=== PATIENT | female | born 1935 | race Caucasian/White ===

== ENCOUNTER 2018-10-25 12:08 | Inpatient (IN) | payer MEDICARE ==
[~2018-10-25] VITALS: Ht 162.6 cm; Wt 72.6 kg
--- NOTE | 2018-10-25 12:20 | NUR ---
ED Nurse Note: PT brought in by ambulance from [facility] c/o unknown bruises, per EMS report, caregiver at the snf found pt on bed with unknown bruises and sent pt for eval. Noted contusion on left shoulder, sternal area and left forehead, noted old bruise on right arm, left arm, and right leg. no new bruise found on BLE. pt vss, resp even and unlabored on RA, will cont monitor. unable to assess pt's AA&o status, pt Tajik speaking only, HX dementia. Noted pt combative, biting, kicking. ERMD aware.
[2018-10-25] MEDS ORDERED: LORazepam Inj 2mg/ml 1ml IV ONE (12:30)
--- NOTE | 2018-10-25 12:33 | Emergency Room Report ---
History of Present Illness General Chief Complaint: General Complaint Source: Patient, Medical Record, EMS Present Illness HPI Patient present from nursing facility with reports of being found on the ground with bruises Patient herself is extremely agitated [place] however is not able to provide appropriate history Emergency contact is being called to obtain further information Unknown regarding the length of time on the ground unknown regarding the timing of the bruises Allergies: Coded Allergies: ZOLPIDEM (Verified Allergy, Unknown, 10/25/18) Patient History Limited by: medical condition Past Medical History: see triage record Pertinent Family History: unable to obtain Reviewed Nursing Documentation: PMH: Agreed; PSxH: Agreed Review of Systems All Other Systems: limited - Other than the ones mentioned in the history of present illness all others are reviewed however they do stay limited due to the patient's mental status Physical Exam Vital Signs Date Time Temp Pulse Resp B/P (MAP) Pulse Ox O2 Delivery O2 Flow Rate FiO2 10/25/18 12:01 97.2 80 16 110/64 99 Sp02 EP Interpretation: reviewed, normal General Appearance: mild distress - Agitated Head: normocephalic, atraumatic Eyes: bilateral eye PERRL, bilateral eye EOMI ENT: dry mucus membranes Neck: supple Respiratory: lungs clear, no retraction, no accessory muscle use Cardiovascular #1: regular rate, rhythm Gastrointestinal: non tender, soft Musculoskeletal: normal inspection Neurologic: responsive Skin: other - Patient has bruising to the left temporal region of her scalp, mid chest area, left shoulder, multiple previous healing bruises in the lower extremity Lymphatic: no adenopathy Medical Decision Making Diagnostic Impression: Primary Impression: Urinary tract infection Additional Impressions: Head injury Contusion ER Course Patient is a fairly complex patient with multiple differential to consideration including but not limited to cardiac cardiopulmonary and vascular emergencies I spoke to family who saw the patient at the nursing facility as well They feel the patient is essentially at baseline levels she does have underlying dementia And is at times somewhat aggressive CT imaging of the head does not show any acute disease Patient's kidney function is elevated Urine sample also shows infectious pathology and patient initiated on hydration given the multiple areas of bruising and concern for recurrent falls patient admitted for further evaluation Labs Test 10/25/18 12:35 10/25/18 14:09 10/26/18 05:30 White Blood Count 9.4 K/UL (4.8-10.8) 9.3 K/UL (4.8-10.8) Red Blood Count 4.45 M/UL (4.20-5.40) 4.04 M/UL (4.20-5.40) Hemoglobin 12.2 G/DL (12.0-16.0) 11.0 G/DL (12.0-16.0) Hematocrit 37.9 % (37.0-47.0) 34.2 % (37.0-47.0) Mean Corpuscular Volume 85 FL (80-99) 85 FL (80-99) Mean Corpuscular Hemoglobin 27.5 PG (27.0-31.0) 27.2 PG (27.0-31.0) Mean Corpuscular Hemoglobin Concent 32.3 G/DL (32.0-36.0) 32.2 G/DL (32.0-36.0) Red Cell Distribution Width 12.6 % (11.6-14.8) 12.4 % (11.6-14.8) Platelet Count 267 K/UL (150-450) 238 K/UL (150-450) Mean Platelet Volume 8.8 FL (6.5-10.1) 8.7 FL (6.5-10.1) Neutrophils (%) (Auto) 49.4 % (45.0-75.0) 61.5 % (45.0-75.0) Lymphocytes (%) (Auto) 41.2 % (20.0-45.0) 29.6 % (20.0-45.0) Monocytes (%) (Auto) 7.1 % (1.0-10.0) 6.4 % (1.0-10.0) Eosinophils (%) (Auto) 1.2 % (0.0-3.0) 1.8 % (0.0-3.0) Basophils (%) (Auto) 1.0 % (0.0-2.0) 0.7 % (0.0-2.0) Prothrombin Time 10.4 SEC (9.30-11.50) Prothromb Time International Ratio 1.0 (0.9-1.1) Activated Partial Thromboplast Time 27 SEC (23-33) Sodium Level 140 MMOL/L (136-145) Potassium Level 4.5 MMOL/L (3.5-5.1) Chloride Level 104 MMOL/L (98-107) Carbon Dioxide Level 28 MMOL/L (21-32) Anion Gap 8 mmol/L (5-15) Blood Urea Nitrogen 30 mg/dL (7-18) Creatinine 1.4 MG/DL (0.55-1.30) Estimat Glomerular Filtration Rate mL/min (>60) Glucose Level 134 MG/DL (74-106) Calcium Level 8.7 MG/DL (8.5-10.1) Total Bilirubin 0.3 MG/DL (0.2-1.0) Aspartate Amino Transf (AST/SGOT) 14 U/L (15-37) Alanine Aminotransferase (ALT/SGPT) 16 U/L (12-78) Alkaline Phosphatase 79 U/L (46-116) Total Creatine Kinase 20 U/L (26-308) Creatine Kinase MB 0.5 NG/ML (0.0-3.6) Creatine Kinase MB Relative Index 2.5 Troponin I 0.005 ng/mL (0.000-0.056) Total Protein 7.6 G/DL (6.4-8.2) Albumin 3.2 G/DL (3.4-5.0) Globulin 4.4 g/dL Albumin/Globulin Ratio 0.7 (1.0-2.7) Lipase 84 U/L (73-393) Urine Color Pale yellow Urine Appearance Clear Urine pH 6.5 (4.5-8.0) Urine Specific [place] 1.010 (1.005-1.035) Urine Protein 2+ (NEGATIVE) Urine Glucose (UA) Negative (NEGATIVE) Urine Ketones Negative (NEGATIVE) Urine Blood 5+ (NEGATIVE) Urine Nitrite Negative (NEGATIVE) Urine Bilirubin Negative (NEGATIVE) Urine Urobilinogen Normal MG/DL (0.0-1.0) Urine Leukocyte Esterase 3+ (NEGATIVE) Urine RBC 15-20 /HPF (0 - 2) Urine WBC 60-80 /HPF (0 - 2) Urine Squamous Epithelial Cells Few /LPF (NONE/OCC) Urine Bacteria Few /HPF (NONE) Rhythm Strip Diag. Results EP Interpretation: yes Rate: 80 Rhythm: NSR, no PVC's, no ectopy Chest X-Ray Diagnostic Results Chest X-Ray Diagnostic Results : Chest X-Ray Ordered: Yes # of Views/Limited/Complete: 1 View Indication: Chest Pain EP Interpretation: Yes Interpretation: no consolidation, no effusion, no pneumothorax Impression: No acute disease Electronically Signed by: Chris Vickers DO Other X-Ray Diagnostic Results Other X-Ray Diagnostic Results #1: X-Ray ordered: Left shoulde # of Views/Limited Vs Complete: 2 View Indication: Pain EP Interpretation: Yes Interpretation: no dislocation, no soft tissue swelling, no fractures Impression: No acute disease Electronically Signed by: Chris Vickers DO Other X-Ray Diagnostic Results #2: X-Ray ordered: Pelvic # of Views/Limited Vs Complete: 1 View Indication: Pain EP Interpretation: Yes Interpretation: no dislocation, no soft tissue swelling, no fractures Impression: No acute disease Electronically Signed by: Chris Vickers DO CT/MRI/US Diagnostic Results CT/MRI/US Diagnostic Results : Impression CT head no acute disease Last Vital Signs Date Time Temp Pulse Resp B/P (MAP) Pulse Ox O2 Delivery O2 Flow Rate FiO2 10/25/18 12:01 97.2 80 16 110/64 99 Status: improved Disposition: ADMITTED INPATIENT Condition: Serious Chris Vickers DO Oct 25, 2018 12:33
--- NOTE | 2018-10-25 12:40 | NUR ---
ED Nurse Note: blood specimen sent.
--- NOTE | 2018-10-25 12:43 | NUR ---
ED Nurse Note: report given to YE Moseley and endorsed care.
[2018-10-25 12:44] VITALS: BP 152/79
[2018-10-25 13:06] LABS: EOSINOPHILS % (AUTO) 1.2 % (0.0-3.0); HEMATOCRIT 37.9 % (37.0-47.0); HEMOGLOBIN 12.2 G/DL (12.0-16.0); LYMPHOCYTES % (AUTO) 41.2 % (20.0-45.0); MEAN CORPUSCULAR VOLUME 85 FL (80-99); MONOCYTES % (AUTO) 7.1 % (1.0-10.0); NEUTROPHILS % (AUTO) 49.4 % (45.0-75.0); PLATELET COUNT 267 K/UL (150-450); RED BLOOD COUNT 4.45 M/UL (4.20-5.40); RED CELL DISTRIBUTION WIDTH 12.6 % (11.6-14.8); WHITE BLOOD COUNT 9.4 K/UL (4.8-10.8)
[2018-10-25 13:07] LABS: ANION GAP 8 mmol/L (5-15); BLOOD UREA NITROGEN 30 mg/dL (7-18); CALCIUM 8.7 MG/DL (8.5-10.1); CARBON DIOXIDE 28 MMOL/L (21-32); CHLORIDE 104 MMOL/L (98-107); CREATININE 1.4 MG/DL (0.55-1.30); POTASSIUM 4.5 MMOL/L (3.5-5.1); SODIUM 140 MMOL/L (136-145)
[2018-10-25 13:22] LABS: ALANINE AMINOTRANSFERASE 16 U/L (12-78); ALBUMIN 3.2 G/DL (3.4-5.0); ALBUMIN/GLOBULIN RATIO 0.7 (1.0-2.7); ALKALINE PHOSPHATASE 79 U/L (46-116); ASPARTATE AMINO TRANSFERASE 14 U/L (15-37); BILIRUBIN,TOTAL 0.3 MG/DL (0.2-1.0); CKMB 0.5 NG/ML (0.0-3.6); CREATINE KINASE 20 U/L (26-308)
--- NOTE | 2018-10-25 13:25 | NUR ---
ED Nurse Note: Pt taken to CT and xray. Ativan given.
--- NOTE | 2018-10-25 14:10 | Diagnostic Imaging Report ---
EXAM: CT Head Without Intravenous Contrast CLINICAL HISTORY: PAIN TECHNIQUE: Axial computed tomography images of the head/brain without intravenous contrast. CTDI is 70.38 mGy and DLP is 1411 mGy-cm. One or more of the following dose reduction techniques were used: automated exposure control, adjustment of the mA and/or kV according to patient size, use of iterative reconstruction technique. COMPARISON: No relevant prior studies available. FINDINGS: Brain: Motion slightly limits assessment of the vertex. No clear intracranial hemorrhage or mass effect. No clear acute large vessel territorial infarct. Involutional and microvascular ischemic changes. Ventricles: Unremarkable. No ventriculomegaly. Bones/joints: Unremarkable. No acute fracture. Soft tissues: Unremarkable. Sinuses: Small mucous retention cyst in the left maxillary sinus.. Mastoid air cells: Unremarkable as visualized. No mastoid effusion. IMPRESSION: No definite acute intracranial process on exam that is slightly limited by motion.
--- NOTE | 2018-10-25 14:12 | Diagnostic Imaging Report ---
EXAM: XR Chest, 1 View CLINICAL HISTORY: CP TECHNIQUE: Frontal view of the chest. COMPARISON: No relevant prior studies available. FINDINGS: Lungs: Left base atelectasis. Cannot exclude infectious infiltrate. Pleural space: Unremarkable. No pneumothorax. Heart: Borderline cardiomegaly. Mediastinum: Aortic atherosclerosis. Bones/joints: Osteopenia. IMPRESSION: Left base atelectasis. Cannot exclude infectious infiltrate.
--- NOTE | 2018-10-25 14:14 | Diagnostic Imaging Report ---
EXAM: XR Left Shoulder Complete, 2 or More Views CLINICAL HISTORY: TRAUMA TECHNIQUE: Two or more views of the left shoulder. COMPARISON: No relevant prior studies available. FINDINGS: Bones/joints: Technically limited. Transscapular view. Osteopenia. No acute fracture. No dislocation. Soft tissues: Unremarkable. IMPRESSION: No clear fracture or dislocation on technically limited exam
--- NOTE | 2018-10-25 14:15 | Diagnostic Imaging Report ---
EXAM: XR Pelvis, 1 or 2 Views CLINICAL HISTORY: TRAUMA TECHNIQUE: Frontal view of the pelvis. COMPARISON: No relevant prior studies available. FINDINGS: Bones/joints: Osteopenia. No acute fracture. No dislocation. Soft tissues: Fecal retention. Calcific atherosclerosis. IMPRESSION: No fracture or dislocation
[2018-10-25 14:20] LABS: APPEARANCE,URINE CLEAR; BILIRUBIN, URINE NEGATIVE (NEGATIVE); COLOR,URINE PALE YELLOW; GLUCOSE, URINE (UA) NEGATIVE (NEGATIVE); KETONES,URINE NEGATIVE (NEGATIVE); LEUKOCYTE ESTERASE ,URINE 3+ (NEGATIVE); NITRITE,URINE NEGATIVE (NEGATIVE); PH,URINE 6.5 (4.5-8.0); PROTEIN,URINE 2+ (NEGATIVE); UROBILINOGEN,URINE NORMAL MG/DL (0.0-1.0)
[2018-10-25 14:30] VITALS: BP 145/80
[2018-10-25] MEDS ORDERED: cefTRIAXone 1 GM in NS 55 ML IVPB ONE (15:00)
[2018-10-25] MEDS ORDERED: ACETAMINOPHEN325 M1 ORAL (17:14)
[2018-10-25] MEDS ORDERED: ARTIFICIAL TEAR15 ML BOTH EYES (17:16)
[2018-10-25] MEDS ORDERED: ASPIR 8181 MG ORAL (17:17)
[2018-10-25] MEDS ORDERED: BASAGLAR SUBQ (17:20)
[2018-10-25] MEDS ORDERED: [UNRECOGNIZED DRUG - OTHER] SUBQ (17:20)
[2018-10-25] MEDS ORDERED: KLONOPIN0.5 MG ORAL (17:22)
[2018-10-25] MEDS ORDERED: CATAPRES0.1 MG ORAL (17:23)
[2018-10-25] MEDS ORDERED: VITAMIN B-12500 MCG ORAL (17:24)
[2018-10-25] MEDS ORDERED: FISH OIL 1,0001 EAC1 ORAL (17:26)
[2018-10-25] MEDS ORDERED: SYNTHROID25 MCG ORAL (17:27)
[2018-10-25] MEDS ORDERED: LOSARTAN POTASS25 MG ORAL (17:28)
[2018-10-25 17:30] VITALS: BP 154/79
[2018-10-25] MEDS ORDERED: LOTEMAX3.5 GM BOTH EYES (17:30)
[2018-10-25] MEDS ORDERED: NAMENDA5 MG ORAL (17:35)
[2018-10-25] MEDS ORDERED: MILK OF MA400 MG/51 ORAL (17:37)
[2018-10-25] MEDS ORDERED: NOVOLOG MI100 UNIT/3 SQ (17:40)
[2018-10-25] MEDS ORDERED: NOVOLOG100 UNITS1 SUBQ (17:40)
[2018-10-25] MEDS ORDERED: NOVOLOG100 UNIT/4 SQ (17:40)
[2018-10-25] MEDS ORDERED: PRO-STAT LIQUID30 ML ORAL (17:42)
[2018-10-25] MEDS ORDERED: SENNOSIDES8.6 MG ORAL (17:45)
[2018-10-25] MEDS ORDERED: ZOCOR40 MG ORAL (17:48)
[2018-10-25] MEDS ORDERED: TRADJENTA5 MG PO (17:49)
--- NOTE | 2018-10-25 17:56 | NUR ---
ED Nurse Note: telephone report given to YE Myrick
--- NOTE | 2018-10-25 18:07 | NUR ---
Craig ruvalcaba in ED - 10/25/18 at 1807 by NITZA ED Nurse
--- NOTE | 2018-10-25 18:15 | NUR ---
NURSE NOTES: Receive patient from ER ,patient awake ,respirations unlabored.no open wound noted,noted bruise on the left shoulder,left side of forehead,and generalize bruising on lower legs.bruising on the left arm and upper right arm.Patient alert to name.Bed alarm on. Dhara LOPEZ notified of patient admission.
--- NOTE | 2018-10-25 19:40 | NUR ---
NURSE NOTES: Receive patient awake ,respirations unlabored.no open wound noted,noted bruise on the left shoulder,left side of forehead,and generalized bruising on lower legs.bruising on the left arm and upper right arm.Patient alert to name.Bed alarm on. Will continue to monitor patient.
--- NOTE | 2018-10-25 19:40 | NUR ---
HAND-OFF: Report given to Aleja BELCHER.
[2018-10-25 20:00] VITALS: BP 142/84
[2018-10-25] MEDS ORDERED: Albuterol/Ipratropium 3ml neb HHN PRN (21:15)
[2018-10-25] MEDS ORDERED: clonazePAM 0.5mg tab ORAL PRN (21:15)
[2018-10-25] MEDS ORDERED: Morphine Sulfate 2mg/ml Inj(IV/IM USE ONLY) IVP PRN (21:15)
[2018-10-25] MEDS ORDERED: Miralax 17gm pkt ORAL PRN (21:15)
[2018-10-25] MEDS: Heparin 5000 units/ml inj SUBQ SCH (21:28)
[2018-10-25] MEDS ORDERED: Nitroglycerin Subl 0.4mg tab SL PRN (21:30)
[2018-10-25] MEDS ORDERED: Dextrose 50% 25ml Syringe IV PRN (21:30)
[2018-10-25] MEDS: Cefepime HCl 2 GM in D5W 110 ML IV SCH (22:11)
[2018-10-25] MEDS ORDERED: Vancomycin 1.25gm Premix IVPB ONE (23:00)
[2018-10-26] VITALS: BP 163/80
[2018-10-26] MEDS ORDERED: Vancomycin 1 GM in D5W 275 ML IV SCH (00:30)
[2018-10-26 04:00] VITALS: BP 125/94
[2018-10-26] MEDS: NovoLOG Insulin Flexpen SUBQ SCH ×4 (06:30→21:06)
[2018-10-26] MEDS: Levothyroxine 25mcg tab ORAL SCH (06:30)
[2018-10-26 07:12] LABS: BASOPHILS % (AUTO) 0.7 % (0.0-2.0); EOSINOPHILS % (AUTO) 1.8 % (0.0-3.0); HEMATOCRIT 34.2 % (37.0-47.0); LYMPHOCYTES % (AUTO) 29.6 % (20.0-45.0); MEAN CORPUSCULAR VOLUME 85 FL (80-99); MONOCYTES % (AUTO) 6.4 % (1.0-10.0); NEUTROPHILS % (AUTO) 61.5 % (45.0-75.0); PLATELET COUNT 238 K/UL (150-450); RED BLOOD COUNT 4.04 M/UL (4.20-5.40); RED CELL DISTRIBUTION WIDTH 12.4 % (11.6-14.8); WHITE BLOOD COUNT 9.3 K/UL (4.8-10.8)
--- NOTE | 2018-10-26 07:35 | NUR ---
NURSE NOTES: Received patient on bed, awake. Bilateral soft wrist restraints on. IV intact and patent. Bed in low and locked position, call light in reach. No signs of respiratory distress or pain. Room board updated, will continue to monitor.
--- NOTE | 2018-10-26 07:58 | NUR ---
HAND-OFF: Report given to YE Garay.
[2018-10-26 08:00] VITALS: BP 166/91
[2018-10-26 08:29] LABS: ALANINE AMINOTRANSFERASE 12 U/L (12-78); ALBUMIN/GLOBULIN RATIO 0.8 (1.0-2.7); ALKALINE PHOSPHATASE 73 U/L (46-116); ANION GAP 11 mmol/L (5-15); ASPARTATE AMINO TRANSFERASE 15 U/L (15-37); BILIRUBIN,TOTAL 0.3 MG/DL (0.2-1.0); BLOOD UREA NITROGEN 22 mg/dL (7-18); CALCIUM 8.5 MG/DL (8.5-10.1); CARBON DIOXIDE 24 MMOL/L (21-32); CHLORIDE 106 MMOL/L (98-107); CREATININE 1.2 MG/DL (0.55-1.30); SODIUM 140 MMOL/L (136-145)
[2018-10-26] MEDS ORDERED: Heparin 5000 units/ml inj SUBQ SCH (09:00)
[2018-10-26] MEDS: Losartan 25mg tab ORAL SCH (09:07)
[2018-10-26] MEDS: Heparin 5000 units/ml inj SUBQ SCH ×2 (09:08→21:05)
[2018-10-26] MEDS ORDERED: Tubing IV Secondary IV ONE (09:10)
--- NOTE | 2018-10-26 10:07 | NUR ---
RN CALL CENTERCHARGER TESTER 83 Y/O FEMALE BIBA FROM [facility] TO [facility] ER CC:GENERAL COMPLAINT SI:ENCEPHALOPATHY . MULTIPLE FALLS . UTI VS: BP 154/79, P 85, T 97.1, RR 20, SpO2 100 RBC 4.04, Hgb 11.0, Hct 34.2, BUN 30, CR 1.4, URINE BLOOD 5+ CXR IMPRESSION:Left base atelectasis. IS:ZOFRAN 4mg IVP NS 500ml IV LORAZEPAM 2mg IV CEFTRIAXONE 55ml IVPB VANCOMYCIN 275ml IVPB ADMITTED TO MED/SURG DCP: RETURN TO [facility]
[2018-10-26 12:00] VITALS: BP 121/81
[2018-10-26 16:00] VITALS: BP 151/95
--- NOTE | 2018-10-26 18:00 | History and Physical Report ---
DATE OF ADMISSION: 10/25/2018 CHIEF COMPLAINT: The patient is an 83-year-old British-speaking female, who presents with chief complaint of altered mental status. HISTORY OF PRESENT ILLNESS: The patient is a resident of [facility]. According to staff at [facility], the patient was found on the floor. It was unknown how long the patient was on the floor. The patient herself is unable to contribute much to the history and physical. She is British-speaking only. The patient was also quite agitated in the emergency room. The patient was admitted to [facility] for altered mental status. REVIEW OF SYSTEMS: Unable to assess secondary to the patient's mental status. PAST MEDICAL HISTORY: Significant for: 1. Diabetes type 2. 2. Hypothyroidism. 3. Alzheimer's dementia. 4. Gout. 5. Hypercholesterolemia. 6. Major depression. PAST SURGICAL HISTORY: Unknown. CURRENT MEDICATIONS: 1. Tylenol 650 mg p.o. q.4 h. p.r.n. 2. Aspirin 81 mg p.o. daily. 3. 10 units subcutaneously nightly. 4. Klonopin 0.5 mg p.o. twice daily. 5. Clonidine 0.1 mg p.o. twice daily. 6. Vitamin B12 1000 mcg p.o. daily. 7. Levoxyl 0.025 mg p.o. daily. 8. Losartan 25 mg p.o. daily. 9. Lotemax 0.5% applied one 0.25 inch to both eyes nightly. 10. Methenamine 5 mg one tablet p.o. twice daily. ALLERGIES: No known drug allergies. SOCIAL HISTORY: The patient is a . The patient is resident of [facility]. The patient denies tobacco or alcohol use. PHYSICAL EXAMINATION: VITAL SIGNS: Temperature 97.9 degrees, respirations 19, pulse 71, and blood pressure 125/94. GENERAL: The patient is well-developed and well-nourished white female, in no apparent distress. HEENT: Eyes, pupils equal and responsive to light and accommodation. Extraocular movements are intact. NECK: Supple without lymphadenopathy. CHEST: Lungs are clear to auscultation bilaterally without wheezes or rales. CARDIOVASCULAR: Regular rate. S1 and S2 are normal without murmurs, rubs, or gallops. ABDOMEN: Soft, nontender, and nondistended. Positive bowel sounds. No evidence of hepatosplenomegaly. Currently, no rebound or guarding noted. RECTAL: Refused. GENITAL: Refused. EXTREMITIES: Negative for clubbing, cyanosis, or edema. NEUROLOGIC: Cranial nerves II through XII are grossly intact without focal deficits. Motor strength is 5/5 bilaterally throughout. Deep tendon reflexes are 2+ plantar. LABORATORY STUDIES: WBC 9.4, hemoglobin 12.2, hematocrit 37.9, and platelets 267,000. Sodium 140, potassium 4.5, chloride 104, CO2 20, BUN 30, creatinine 1.4, glucose 134, and troponin 0.005. Urinalysis showed 2+ protein, 5+ blood, 3+ leukocyte esterase with 60 to 80 WBC and 15 to 20 RBC. ASSESSMENT: This is an 83-year-old white female with: 1. Near syncope. 2. Urinary tract infection. 3. Diabetes type 2. 4. Hypertension. 5. Hypothyroidism. 6. Alzheimer's dementia. 7. Gout. 8. Hypercholesterolemia. 9. Major depression. TREATMENT: 1. Near syncope. This may be secondary to urinary tract infection versus cerebrovascular accident versus acute myocardial infarction. The patient is admitted to the medical/surgical unit. 2. Urinary tract infection. Urine culture is pending. The patient has been started empirically on vancomycin and cefepime. Await urine culture ID and sensitivity. 3. Diabetes type 2. The patient has been placed on NovoLog sliding scale. 4. Hypertension. Continue losartan as above. 5. Hypothyroidism. Continue Levoxyl as above. 6. Alzheimer's dementia. Continue Namenda as above. 7. Gout. 8. Hypercholesterolemia. 9. Major depression. Abelardo Miranda M.D. DR: Liang JOB#: [id number] CC:
--- NOTE | 2018-10-26 19:17 | NUR ---
HAND-OFF: Report given to YE Hernández.
--- NOTE | 2018-10-26 19:37 | NUR ---
NURSE NOTES: Received patient in bed, awake. Bilateral soft wrist restraints on. IV intact and patent. Bed in low and locked position, bed alarm on, call light in reach. No signs of respiratory distress or pain. Room board updated, will continue to monitor.
[2018-10-26 20:00] VITALS: BP 153/80
[2018-10-26] MEDS: Cefepime HCl 2 GM in D5W 110 ML IV SCH (21:33)
[2018-10-26] MEDS ORDERED: Vancomycin 750mg/NS 275ml IVPB SCH ×2 (23:00)
[2018-10-27] VITALS: BP 103/65
[2018-10-27 04:00] VITALS: BP 153/83
[2018-10-27] MEDS: NovoLOG Insulin Flexpen SUBQ SCH ×4 (05:47→20:16)
[2018-10-27] MEDS: Levothyroxine 25mcg tab ORAL SCH (05:48)
[2018-10-27 07:15] LABS: ANION GAP 9 mmol/L (5-15); BLOOD UREA NITROGEN 20 mg/dL (7-18); CALCIUM 8.4 MG/DL (8.5-10.1); CARBON DIOXIDE 24 MMOL/L (21-32); CHLORIDE 109 MMOL/L (98-107); CREATININE 1.4 MG/DL (0.55-1.30); SODIUM 142 MMOL/L (136-145)
[2018-10-27 07:26] LABS: BASOPHILS % (AUTO) 0.6 % (0.0-2.0); HEMOGLOBIN 10.6 G/DL (12.0-16.0); LYMPHOCYTES % (AUTO) 38.8 % (20.0-45.0); MEAN CORPUSCULAR VOLUME 85 FL (80-99); MONOCYTES % (AUTO) 5.2 % (1.0-10.0); NEUTROPHILS % (AUTO) 53.3 % (45.0-75.0); PLATELET COUNT 228 K/UL (150-450); RED BLOOD COUNT 3.86 M/UL (4.20-5.40); RED CELL DISTRIBUTION WIDTH 12.6 % (11.6-14.8); WHITE BLOOD COUNT 7.1 K/UL (4.8-10.8)
[2018-10-27 08:00] VITALS: BP 153/88
--- NOTE | 2018-10-27 08:01 | NUR ---
NURSE NOTES: Patient received, resting in bed. Breathing unlabored on room air. Soft restraints on bilateral wrists. IV site patent and intact on right arm, fluids running. Bed locked in lowest position, bed alarm on. Call light placed within reach, will continue to monitor.
--- NOTE | 2018-10-27 08:07 | NUR ---
HAND-OFF: Report given to YE Menon.
[2018-10-27] MEDS: Losartan 25mg tab ORAL SCH (09:09)
[2018-10-27] MEDS: Heparin 5000 units/ml inj SUBQ SCH ×2 (09:18→20:17)
--- NOTE | 2018-10-27 10:19 | NUR ---
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 MULTIPLE FALLS . UTI VS: BP 153/88, P 74, T 97.2, RR 17, SpO2 95 RBC 3.86, Hgb 10.6, Hct 33.0, BUN 20, CR 1.4 IS:VANCOMYCIN 275ml IVPB CLONIDINE HCI 0.1mg COZAAR 25mg CEFEPIME HCI 110ml IV KLONOPIN 0.5mg HEPARIN SUBQ NS x 1L IV MED/SURG STATUS
[2018-10-27 12:00] VITALS: BP 143/77
--- NOTE | 2018-10-27 12:50 | Initial Psychiatric Evaluation ---
Psychiatry Consultation Psychiatry Consultation Chief Complaint: General Complaint History of Present Illness: 83-year-old Samoan-speaking female, with mmp who presents with chief complaint of altered mental status. the pt was found on the floor in the sniff. the pt is disoriented and confused. the pt is easily agitated and is unable to provide hx. the pt has waxing and waning of consciousness. the pt has memory impairment. Allergies: Coded Allergies: ZOLPIDEM (Verified Allergy, Unknown, 10/25/18) Medication History Scheduled Amino Acids/Protein Hydrolys (Pro-Stat Liquid), 30 ML ORAL DAILY, (Reported) Aspirin* (Aspir 81*), 81 MG ORAL DAILY, (Reported) Clonidine Hcl* (Catapres*), 0.1 MG ORAL Q12HR, (Reported) Cyanocobalamin (Vitamin B-12)* (Vitamin B-12*), 1,000 MCG ORAL DAILY, (Reported) Insulin Aspart (Novolog Flexpen), Unknown Dose SUBQ BEFORE MEALS AND HS, ( Reported) Levothyroxine Sodium* (Synthroid*), 25 MCG ORAL ACBREAKFAST, (Reported) Linagliptin (Tradjenta), 5 MG PO DAILY, (Reported) Losartan Potassium* (Losartan Potassium*), 25 MG ORAL DAILY, (Reported) Loteprednol Etabonate (Lotemax), 0.25 INCH BOTH EYES BEDTIME, (Reported) Memantine Hcl* (Namenda*), 5 MG ORAL TWICE A DAY, (Reported) Hansen-3 Fatty Acids/Fish Oil* (Fish Oil 1,000 Mg Softgel*), 2 CAP ORAL Q12HR, ( Reported) Sennosides* (Sennosides*), 17.2 MG ORAL BEDTIME, (Reported) Simvastatin (Zocor), 40 MG ORAL BEDTIME, (Reported) [Basaglar Pen 100u/mL], 10 UNITS SUBQ QHS, (Reported) Scheduled PRN Acetaminophen* (Acetaminophen 325MG Tablet*), 650 MG ORAL Q6H PRN for For Pain, (Reported) Acetaminophen* (Acetaminophen 325MG Tablet*), 650 MG ORAL Q6H PRN for Prn Headache/Temp > 101, (Reported) Clonazepam* (Klonopin*), 0.5 MG ORAL Q12HR PRN for Restlessness, (Reported) Magnesium Hydroxide* (Milk Of Magnesia*), 30 ML ORAL Q6HR PRN for Constipation, (Reported) Miscellaneous Medications Dextran 70/Hypromellose (Artificial Tears Eye Drops*), 1 DROP BOTH EYES, ( Reported) Patient History Limited by: medical condition History Provided By: Medical Record, PMD Objective Data Height (Feet): 5 Height (Inches): 4.00 Weight (Pounds): 160 Appearance: no abnormalities noted Behavior Mannerisms: good eye contact Affect: constricted Mood: anxious, agitated Thought Process: loose association Suicidal Ideation: not present Assessment/Plan Problem List: (1) Dementia with behavioral disturbance ICD Codes: F03.91 - Unspecified dementia with behavioral disturbance SNOMED: [id number] Treatment Plan: Depakote 250mg po bid dc klonopin ativan prn cont restraints. Cynthia López MD Oct 27, 2018 12:50
--- NOTE | 2018-10-27 15:12 | Consultation ---
History of Present Illness General Date patient seen: Oct 27, 2018 Chief Complaint: General Complaint Present Illness HPI 83 y/o F with hx of Dm2, hypothyroidism, HTN, HLD, Alzheimer's Dementia, Gout, HLD, MDD, SNF resident presents to ED on 10/25 after being found ont he ground with bruises Allergies: Coded Allergies: ZOLPIDEM (Verified Allergy, Unknown, 10/25/18) Medication History Scheduled Amino Acids/Protein Hydrolys (Pro-Stat Liquid), 30 ML ORAL DAILY, (Reported) Aspirin* (Aspir 81*), 81 MG ORAL DAILY, (Reported) Clonidine Hcl* (Catapres*), 0.1 MG ORAL Q12HR, (Reported) Cyanocobalamin (Vitamin B-12)* (Vitamin B-12*), 1,000 MCG ORAL DAILY, (Reported) Insulin Aspart (Novolog Flexpen), Unknown Dose SUBQ BEFORE MEALS AND HS, ( Reported) Levothyroxine Sodium* (Synthroid*), 25 MCG ORAL ACBREAKFAST, (Reported) Linagliptin (Tradjenta), 5 MG PO DAILY, (Reported) Losartan Potassium* (Losartan Potassium*), 25 MG ORAL DAILY, (Reported) Loteprednol Etabonate (Lotemax), 0.25 INCH BOTH EYES BEDTIME, (Reported) Memantine Hcl* (Namenda*), 5 MG ORAL TWICE A DAY, (Reported) [place]-3 Fatty Acids/Fish Oil* (Fish Oil 1,000 Mg Softgel*), 2 CAP ORAL Q12HR, ( Reported) Sennosides* (Sennosides*), 17.2 MG ORAL BEDTIME, (Reported) Simvastatin (Zocor), 40 MG ORAL BEDTIME, (Reported) [Basaglar Pen 100u/mL], 10 UNITS SUBQ QHS, (Reported) Scheduled PRN Acetaminophen* (Acetaminophen 325MG Tablet*), 650 MG ORAL Q6H PRN for For Pain, (Reported) Acetaminophen* (Acetaminophen 325MG Tablet*), 650 MG ORAL Q6H PRN for Prn Headache/Temp > 101, (Reported) Clonazepam* (Klonopin*), 0.5 MG ORAL Q12HR PRN for Restlessness, (Reported) Magnesium Hydroxide* (Milk Of Magnesia*), 30 ML ORAL Q6HR PRN for Constipation, (Reported) Miscellaneous Medications Dextran 70/Hypromellose (Artificial Tears Eye Drops*), 1 DROP BOTH EYES, ( Reported) Patient History Healthcare decision maker Resuscitation status Advanced Directive on File Patient History Narrative Pmhx: as above Shx: The patient is a . The patient is resident of [facility]. The patient denies tobacco or alcohol use. Fhx: non contributory Review of Systems All Other Systems: negative except mentioned in HPI Physical Exam Physical Exam Narrative GENERAL: The patient is well-developed and well-nourished white female, in no apparent distress. HEENT: Eyes, pupils equal and responsive to light and accommodation. Extraocular movements are intact. NECK: Supple without lymphadenopathy. CHEST: Lungs are clear to auscultation bilaterally without wheezes or rales. CARDIOVASCULAR: Regular rate. S1 and S2 are normal without murmurs, rubs, or gallops. ABDOMEN: Soft, nontender, and nondistended. Positive bowel sounds. No evidence of hepatosplenomegaly. Currently, no rebound or guarding noted. EXTREMITIES: Negative for clubbing, cyanosis, or edema. NEUROLOGIC: Cranial nerves II through XII are grossly intact without focal deficits. Motor strength is 5/5 bilaterally throughout. Deep tendon reflexes are 2+ plantar. Last 24 Hour Vital Signs Date Time Temp Pulse Resp B/P (MAP) Pulse Ox O2 Delivery O2 Flow Rate FiO2 10/27/18 12:00 97.8 63 19 143/77 (99) 97 10/27/18 09:10 153/83 10/27/18 09:09 153/83 10/27/18 09:00 Room Air 10/27/18 08:00 98.0 74 20 153/88 (109) 95 10/27/18 04:00 97.2 71 18 153/83 (106) 97 10/27/18 00:00 97.2 73 17 103/65 (78) 97 10/26/18 21:04 153/80 10/26/18 21:00 Room Air 10/26/18 20:00 97.5 81 17 153/80 (104) 96 10/26/18 16:00 97.6 92 17 151/95 (113) 96 Intake and Output 10/26/18 10/27/18 19:00 07:00 Intake Total 1280 ml 885.000 ml Output Total 350 ml Balance 930 ml 885.000 ml Intake Oral 480 ml IV Total 800 ml 885.000 ml Output Urine Total 350 ml # Voids 2 Laboratory Tests Test 10/27/18 05:50 White Blood Count 7.1 K/UL (4.8-10.8) Red Blood Count 3.86 M/UL (4.20-5.40) L Hemoglobin 10.6 G/DL (12.0-16.0) L Hematocrit 33.0 % (37.0-47.0) L Mean Corpuscular Volume 85 FL (80-99) Mean Corpuscular Hemoglobin 27.5 PG (27.0-31.0) Mean Corpuscular Hemoglobin Concent 32.1 G/DL (32.0-36.0) Red Cell Distribution Width 12.6 % (11.6-14.8) Platelet Count 228 K/UL (150-450) Mean Platelet Volume 8.2 FL (6.5-10.1) Neutrophils (%) (Auto) 53.3 % (45.0-75.0) Lymphocytes (%) (Auto) 38.8 % (20.0-45.0) Monocytes (%) (Auto) 5.2 % (1.0-10.0) Eosinophils (%) (Auto) 2.0 % (0.0-3.0) Basophils (%) (Auto) 0.6 % (0.0-2.0) Sodium Level 142 MMOL/L (136-145) Potassium Level 4.0 MMOL/L (3.5-5.1) Chloride Level 109 MMOL/L (98-107) H Carbon Dioxide Level 24 MMOL/L (21-32) Anion Gap 9 mmol/L (5-15) Blood Urea Nitrogen 20 mg/dL (7-18) H Creatinine 1.4 MG/DL (0.55-1.30) H Estimat Glomerular Filtration Rate mL/min (>60) Glucose Level 90 MG/DL (74-106) Calcium Level 8.4 MG/DL (8.5-10.1) L Height (Feet): 5 Height (Inches): 4.00 Weight (Pounds): 160 Medications Current Medications Medications (Trade) Dose Ordered Sig/Ivis Route PRN Reason Start Time Stop Time Status Last Admin Dose Admin Acetaminophen (Tylenol) 650 mg Q4H PRN ORAL T>100.5 10/25/18 21:15 11/24/18 21:14 Albuterol/ Ipratropium (Albuterol/ Ipratropium) 3 ml Q4H PRN HHN Shortness of Breath 10/25/18 21:15 10/30/18 21:14 Cefepime HCl 2 gm/ Dextrose 110 ml @ 220 mls/hr Q24H IV 10/25/18 22:30 11/01/18 22:29 10/26/18 21:33 Clonidine HCl (Catapres Tab) 0.1 mg Q12HR ORAL 10/26/18 09:00 11/25/18 08:59 10/27/18 09:10 Dextrose (Dextrose 50%) 25 ml Q30M PRN IV Hypoglycemia 10/25/18 21:30 11/24/18 21:16 Dextrose (Dextrose 50%) 50 ml Q30M PRN IV hypoglycemia 10/25/18 21:30 11/24/18 21:29 Divalproex Sodium (Depakote) 250 mg EVERY 12 HOURS ORAL 10/27/18 12:45 11/26/18 12:44 10/27/18 13:20 Heparin Sodium (Porcine) (Heparin 5000 units/ml) 5,000 units EVERY 12 HOURS SUBQ 10/25/18 21:00 11/24/18 20:59 10/27/18 09:18 Insulin Aspart (NovoLOG) BEFORE MEALS AND HS SUBQ 10/26/18 06:30 11/25/18 06:29 10/27/18 13:24 Levothyroxine Sodium (Synthroid) 25 mcg ACBREAKFAST ORAL 10/26/18 06:30 11/25/18 06:29 10/27/18 05:48 Lorazepam (Ativan) 1 mg Q6H PRN ORAL For Anxiety 10/27/18 12:45 11/03/18 12:44 Losartan Potassium (Cozaar) 25 mg DAILY ORAL 10/26/18 09:00 11/25/18 08:59 10/27/18 09:09 Morphine Sulfate (Morphine Sulfate) 2 mg Q4H PRN IVP Moderate Pain (Pain Scale 4-6) 10/25/18 21:15 11/01/18 21:14 Nitroglycerin (Ntg) 0.4 mg Q5MIN X 3 DOSES PRN SL Prn Chest Pain 10/25/18 21:30 11/24/18 21:29 Ondansetron HCl (Zofran) 4 mg Q6H PRN IVP Nausea & Vomiting 10/25/18 21:15 11/24/18 21:14 Polyethylene Glycol (Miralax) 17 gm DAILYPRN PRN ORAL Constipation 10/25/18 21:15 11/24/18 21:14 Sodium Chloride 1,000 ml @ 100 mls/hr Q10H IV 10/25/18 14:45 11/24/18 14:44 10/26/18 21:34 Temazepam (Restoril) 15 mg HSPRN PRN ORAL Insomnia 10/25/18 21:15 11/01/18 21:14 Vancomycin HCl (Vanco rx to dose) 1 ea DAILY PRN MISC . 10/25/18 21:30 11/24/18 21:29 Vancomycin HCl 750 mg/Sodium Chloride 275 ml @ 183.333 mls/hr Q24H IVPB 10/26/18 23:00 10/31/18 22:59 10/26/18 22:56 Assessment/Plan Assessment: Abx: IV Vancomycin 10/25- Cefepime 10/25- Ceftriaxone x1 10/25 Assessment: Near syncope -Head CT: No definite acute intracranial process on exam that is slightly limited by motion. -shoulder xray: No clear fracture or dislocation on technically limited exam -hip/pelvis xray: No fracture or dislocation Acute encephalopathy Afebrile No leukocytosis -CXR: Left base atelectasis. Cannot exclude infectious infiltrate. Pyuria/bacteriuria- ?UTI (unable to give symptoms) -u/a wbc 60-80, nit neg, leuk +3; ucx 10-20 K. P. mirabilis (R nitrofurantoin; otherwise S) Dm2 hypothyroidism HTN HLD Alzheimer's Dementia Gout HLD MDD SNF resident Plan: -D/c empiric IV Vancomycin #3 -Switch empiric Cefepime #3/5 to PO Keflex -f/u cx -Monitor CBC/CMP, temperatures -aspiration precautions Thank you for this consultation. Will continue to follow along with you. Discussed with Chitra Castillo M.D. Oct 27, 2018 15:12
--- NOTE | 2018-10-27 15:32 | NUR ---
*-* INSURANCE *-* ALL CLINICALS AND REVIEWS HAVE BEEN FAXED TO: [facility] P: [phone] F: [phone]
[2018-10-27 16:00] VITALS: BP 112/95
[2018-10-27] MEDS: LORazepam 1mg tab ORAL PRN (16:03)
--- NOTE | 2018-10-27 17:41 | CDS Physician Query ---
Clarification is required for compliance, coding accuracy, and to reflect severity of illness for this patient Dear Dr. Miranda Date: 10/27/2018 [address] EDIT and place X in appropriate box Patient is admitted with UTI. Acute Encephalopathy is documented in the medical records. Please indicate the type of Encephalopathy: [ ] Metabolic Encephalopathy [ ] Toxic Encephalopathy [ ] Toxic - Metabolic Encephalopathy [ ] Encephalopathy, Other [ ] Other: [ ] Not Applicable Present on Admission: [ ] Yes [ ] No [ ] Clinically Undetermined Physician signature Date Please also document in your Progress Notes and/or Discharge Summary and indicate if the condition was present on admission.
--- NOTE | 2018-10-27 18:49 | Internal Med Progress Note ---
Subjective Date of Service: Oct 27, 2018 Physician Name Abelardo Miranda Attending Physician Joel Araiza MD Current Medications Medications (Trade) Dose Ordered Sig/Ivsi Route PRN Reason Start Time Stop Time Status Last Admin Dose Admin Acetaminophen (Tylenol) 650 mg Q4H PRN ORAL T>100.5 10/25/18 21:15 11/24/18 21:14 Albuterol/ Ipratropium (Albuterol/ Ipratropium) 3 ml Q4H PRN HHN Shortness of Breath 10/25/18 21:15 10/30/18 21:14 Cephalexin (Keflex) 500 mg Q12HR ORAL 10/27/18 21:00 11/03/18 20:59 Clonidine HCl (Catapres Tab) 0.1 mg Q12HR ORAL 10/26/18 09:00 11/25/18 08:59 10/27/18 09:10 Dextrose (Dextrose 50%) 25 ml Q30M PRN IV Hypoglycemia 10/25/18 21:30 11/24/18 21:16 Dextrose (Dextrose 50%) 50 ml Q30M PRN IV hypoglycemia 10/25/18 21:30 11/24/18 21:29 Divalproex Sodium (Depakote) 250 mg EVERY 12 HOURS ORAL 10/27/18 12:45 11/26/18 12:44 10/27/18 13:20 Heparin Sodium (Porcine) (Heparin 5000 units/ml) 5,000 units EVERY 12 HOURS SUBQ 10/25/18 21:00 11/24/18 20:59 10/27/18 09:18 Insulin Aspart (NovoLOG) BEFORE MEALS AND HS SUBQ 10/26/18 06:30 11/25/18 06:29 10/27/18 16:30 Levothyroxine Sodium (Synthroid) 25 mcg ACBREAKFAST ORAL 10/26/18 06:30 11/25/18 06:29 10/27/18 05:48 Lorazepam (Ativan) 1 mg Q6H PRN ORAL For Anxiety 10/27/18 12:45 11/03/18 12:44 10/27/18 16:03 Losartan Potassium (Cozaar) 25 mg DAILY ORAL 10/26/18 09:00 11/25/18 08:59 10/27/18 09:09 Morphine Sulfate (Morphine Sulfate) 2 mg Q4H PRN IVP Moderate Pain (Pain Scale 4-6) 10/25/18 21:15 11/01/18 21:14 Nitroglycerin (Ntg) 0.4 mg Q5MIN X 3 DOSES PRN SL Prn Chest Pain 10/25/18 21:30 11/24/18 21:29 Ondansetron HCl (Zofran) 4 mg Q6H PRN IVP Nausea & Vomiting 10/25/18 21:15 11/24/18 21:14 Polyethylene Glycol (Miralax) 17 gm DAILYPRN PRN ORAL Constipation 10/25/18 21:15 11/24/18 21:14 Sodium Chloride 1,000 ml @ 100 mls/hr Q10H IV 10/25/18 14:45 11/24/18 14:44 10/27/18 17:01 Temazepam (Restoril) 15 mg HSPRN PRN ORAL Insomnia 10/25/18 21:15 11/01/18 21:14 Allergies: Coded Allergies: ZOLPIDEM (Verified Allergy, Unknown, 10/25/18) ROS Limited/Unobtainable: No Constitutional: Reports: no symptoms HEENT: Reports: no symptoms Cardiovascular: Reports: no symptoms Respiratory: Reports: no symptoms Gastrointestinal/Abdominal: Reports: no symptoms Genitourinary: Reports: no symptoms Neurologic/Psychiatric: Reports: no symptoms Subjective 83 YO F admitted with near syncope. Now UTI. Cover for Int Arsalan-Dr Araiza. Objective Last Vital Signs Date Time Temp Pulse Resp B/P (MAP) Pulse Ox O2 Delivery O2 Flow Rate FiO2 10/27/18 16:00 97.7 73 19 112/95 (101) 98 10/27/18 09:00 Room Air 10/25/18 22:40 21 Laboratory Tests Test 10/27/18 05:50 White Blood Count 7.1 K/UL (4.8-10.8) Red Blood Count 3.86 M/UL (4.20-5.40) L Hemoglobin 10.6 G/DL (12.0-16.0) L Hematocrit 33.0 % (37.0-47.0) L Mean Corpuscular Volume 85 FL (80-99) Mean Corpuscular Hemoglobin 27.5 PG (27.0-31.0) Mean Corpuscular Hemoglobin Concent 32.1 G/DL (32.0-36.0) Red Cell Distribution Width 12.6 % (11.6-14.8) Platelet Count 228 K/UL (150-450) Mean Platelet Volume 8.2 FL (6.5-10.1) Neutrophils (%) (Auto) 53.3 % (45.0-75.0) Lymphocytes (%) (Auto) 38.8 % (20.0-45.0) Monocytes (%) (Auto) 5.2 % (1.0-10.0) Eosinophils (%) (Auto) 2.0 % (0.0-3.0) Basophils (%) (Auto) 0.6 % (0.0-2.0) Sodium Level 142 MMOL/L (136-145) Potassium Level 4.0 MMOL/L (3.5-5.1) Chloride Level 109 MMOL/L (98-107) H Carbon Dioxide Level 24 MMOL/L (21-32) Anion Gap 9 mmol/L (5-15) Blood Urea Nitrogen 20 mg/dL (7-18) H Creatinine 1.4 MG/DL (0.55-1.30) H Estimat Glomerular Filtration Rate mL/min (>60) Glucose Level 90 MG/DL (74-106) Calcium Level 8.4 MG/DL (8.5-10.1) L Microbiology Date/Time Source Procedure Growth Status 10/25/18 14:15 Nasal Nares MRSA Culture - Final NO METHICILLIN RESISTANT STAPH AUREUS... Complete 10/25/18 14:09 Urine,Clean Catch Urine Culture - Final Proteus Mirabilis Complete 10/25/18 14:15 Rectum VRE Culture - Final NO VANCOMYCIN RESISTANT ENTEROCOCCUS ... Resulted 10/25/18 14:15 Rectum Pending Resulted Intake and Output 10/26/18 10/27/18 19:00 07:00 Intake Total 1280 ml 885.000 ml Output Total 350 ml Balance 930 ml 885.000 ml Intake Oral 480 ml IV Total 800 ml 885.000 ml Output Urine Total 350 ml # Voids 2 Objective PHYSICAL EXAMINATION: VITAL SIGNS: Temperature 97.9 degrees, respirations 19, pulse 71, and blood pressure 125/94. GENERAL: The patient is well-developed and well-nourished white female, in no apparent distress. HEENT: Eyes, pupils equal and responsive to light and accommodation. Extraocular movements are intact. NECK: Supple without lymphadenopathy. CHEST: Lungs are clear to auscultation bilaterally without wheezes or rales. CARDIOVASCULAR: Regular rate. S1 and S2 are normal without murmurs, rubs, or gallops. ABDOMEN: Soft, nontender, and nondistended. Positive bowel sounds. No evidence of hepatosplenomegaly. Currently, no rebound or guarding noted. RECTAL: Refused. GENITAL: Refused. EXTREMITIES: Negative for clubbing, cyanosis, or edema. NEUROLOGIC: Cranial nerves II through XII are grossly intact without focal deficits. Motor strength is 5/5 bilaterally throughout. Deep tendon reflexes are 2+ plantar. Assessment/Plan Assessment/Plan ASSESSMENT: This is an 83-year-old white female with: 1. Near syncope. 2. Urinary tract infection. 3. Diabetes type 2. 4. Hypertension. 5. Hypothyroidism. 6. Alzheimer's dementia. 7. Gout. 8. Hypercholesterolemia. 9. Major depression. TREATMENT: 1. Near syncope. This may be secondary to urinary tract infection versus cerebrovascular accident versus acute myocardial infarction. The patient is admitted to the medical/surgical unit. 2. Urinary tract infection=proteus. D/C vanco and cefepime per ID; Start oral keflex 3. Diabetes type 2. The patient has been placed on NovoLog sliding scale. 4. Hypertension. Continue losartan as above. 5. Hypothyroidism. Continue Levoxyl as above. 6. Alzheimer's dementia. Continue Namenda as above. 7. Gout. 8. Hypercholesterolemia. 9. Major depression. Abelardo Miranda MD Oct 27, 2018 18:49
--- NOTE | 2018-10-27 19:14 | NUR ---
HAND-OFF: Report given to Yana BELCHER.
--- NOTE | 2018-10-27 19:30 | NUR ---
NURSE NOTES: Patient received in bed, awake, confused. Bilateral wrist restraints applied. Sensations, pulses, mobility present. IV intact and patent, IVF infusing according to order. Bed alarm on. Call light in reach. Will continue POC.
[2018-10-27 20:00] VITALS: BP 160/92
[2018-10-27] MEDS: Cephalexin 500mg cap ORAL SCH (20:16)
--- NOTE | 2018-10-27 21:00 | NUR ---
NURSE NOTES: Upon assessment, patient noted with perianal excoriation d/t incontinence, skin barrier cream applied. Also bilateral heels redness, skin care protocol initiated, heels offloaded off mattress with pillows. Dr. Araiza and daughter in law Gabriella( patient's son unavailable at this time) made aware. Will continue POC.
[2018-10-28] VITALS: BP 154/94
[2018-10-28] MEDS: LORazepam 1mg tab ORAL PRN ×3 (03:36→20:59)
--- NOTE | 2018-10-28 03:40 | NUR ---
NURSE NOTES: Patient was soiled. Linens and gown changed and patient repositioned. Patient kept putting her feet over the siderails and outside the bed. Patient uncontrollably crying, difficult to comfort and redirect even with [place] speaking nurse. Patient very confused, restless, noncompliant and resistive to care. Ativan PO given as ordered. Bed alarm on zone 2. Bilateral soft wrist restraints on. Will continue close monitoring.
[2018-10-28] MEDS: NovoLOG Insulin Flexpen SUBQ SCH ×4 (05:57→21:00)
[2018-10-28] MEDS: Levothyroxine 25mcg tab ORAL SCH (06:09)
[2018-10-28 06:30] LABS: BASOPHILS % (AUTO) 0.5 % (0.0-2.0); EOSINOPHILS % (AUTO) 2.1 % (0.0-3.0); HEMATOCRIT 35.1 % (37.0-47.0); HEMOGLOBIN 11.3 G/DL (12.0-16.0); LYMPHOCYTES % (AUTO) 36.9 % (20.0-45.0); MEAN CORPUSCULAR VOLUME 86 FL (80-99); MONOCYTES % (AUTO) 6.9 % (1.0-10.0); NEUTROPHILS % (AUTO) 53.7 % (45.0-75.0); PLATELET COUNT 231 K/UL (150-450); RED BLOOD COUNT 4.09 M/UL (4.20-5.40); RED CELL DISTRIBUTION WIDTH 12.5 % (11.6-14.8); WHITE BLOOD COUNT 6.3 K/UL (4.8-10.8)
[2018-10-28 07:19] LABS: ALANINE AMINOTRANSFERASE 12 U/L (12-78); ALBUMIN/GLOBULIN RATIO 0.7 (1.0-2.7); ALKALINE PHOSPHATASE 68 U/L (46-116); ANION GAP 10 mmol/L (5-15); ASPARTATE AMINO TRANSFERASE 14 U/L (15-37); BILIRUBIN,TOTAL 0.4 MG/DL (0.2-1.0); BLOOD UREA NITROGEN 19 mg/dL (7-18); CALCIUM 8.7 MG/DL (8.5-10.1); CARBON DIOXIDE 24 MMOL/L (21-32); CHLORIDE 107 MMOL/L (98-107); CREATININE 1.3 MG/DL (0.55-1.30); PHOSPHORUS 3.1 MG/DL (2.5-4.9); POTASSIUM 3.9 MMOL/L (3.5-5.1); SODIUM 141 MMOL/L (136-145)
--- NOTE | 2018-10-28 07:30 | NUR ---
HAND-OFF: Report given to Ulysses BELCHER.
--- NOTE | 2018-10-28 07:30 | NUR ---
NURSE NOTES: Received pt from RN ANAND. Pt is confused and orient x1. Pt is in RA, No SOB or acute respiratory distress noted. pt has intact iv access DUC 22G is running well. all needs attended, bed is locked and is in the lowest position, call light within easy reach. will continue to monitor.
[2018-10-28 08:00] VITALS: BP 162/79
[2018-10-28] MEDS ORDERED: Haloperidol 5mg/ml Inj IM PRN (08:10)
--- NOTE | 2018-10-28 09:02 | NUR ---
RADIOLOGY DEPT., CHEST X-RAY DONE.-P.DYE
[2018-10-28] MEDS: Cephalexin 500mg cap ORAL SCH ×2 (09:18→21:00)
[2018-10-28] MEDS: Losartan 25mg tab ORAL SCH (09:18)
[2018-10-28] MEDS: Heparin 5000 units/ml inj SUBQ SCH ×2 (09:19→21:01)
--- NOTE | 2018-10-28 09:34 | Diagnostic Imaging Report ---
Indication: Cough Technique: One view of the chest Comparison: 10/25/2018 Findings: Lungs and pleural spaces are clear. The heart size is normal. The aorta is tortuous. Impression: No acute process
[2018-10-28 10:00] VITALS: BP 155/77
--- NOTE | 2018-10-28 10:19 | NUR ---
*-* INSURANCE *-* UPDATED CLINICALS HAVE BEEN FAXED TO: [facility] P: [phone] F: [phone]
--- NOTE | 2018-10-28 11:52 | NUR ---
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 MULTIPLE FALLS . UTI VS: BP 162/79, P 77, T 98.9, RR 17, SpO2 95 RBC 4.09, Hgb 11.3, Hct 35.1, BUN 19 IS: KAFLEX 500mg DEPAKOTE 250mg ATIVAN 1mg CLONIDINE HCI 0.1mg COZAAR 25mg SYNTHROID 25mcg NOVOLOG SUBQ KLONOPIN 0.5mg HEPARIN SUBQ NS x 1L IV MED/SURG STATUS
--- NOTE | 2018-10-28 11:56 | NUR ---
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 98.9 HR 77 RR 16 B/P 162/79 RA 98% BUN 19 IS: IVF NS @ 100ML/HR HEPARIN SUBC DUONEB HHN PT/OT EVAL SWALLOW EVAL MED/SURG STATUS
[2018-10-28 12:00] VITALS: BP 139/75
--- NOTE | 2018-10-28 13:15 | Infectious Diseases Prog Note ---
Assessment/Plan Assessment/Plan Abx: IV Vancomycin 10/25- Cefepime 10/25- Ceftriaxone x1 10/25 Assessment: Near syncope -Head CT: No definite acute intracranial process on exam that is slightly limited by motion. -shoulder xray: No clear fracture or dislocation on technically limited exam -hip/pelvis xray: No fracture or dislocation Acute encephalopathy Afebrile No leukocytosis -CXR: Left base atelectasis. Cannot exclude infectious infiltrate. Pyuria/bacteriuria- ?UTI (unable to give symptoms) -u/a wbc 60-80, nit neg, leuk +3; ucx 10-20 K. P. mirabilis (R nitrofurantoin; otherwise S) Dm2 hypothyroidism HTN HLD Alzheimer's Dementia Gout HLD MDD SNF resident Plan: -Continue PO Keflex #2 (abx d #/) for probable UTI -10/27 SP IV Vancomycin #3, Cefepime #3 -f/u cx -Monitor CBC/CMP, temperatures -aspiration precautions Thank you for this consultation. Will continue to follow along with you. Discussed with RN. Subjective Allergies: Coded Allergies: ZOLPIDEM (Verified Allergy, Unknown, 10/25/18) Subjective confused afebrile no leukocytosis Objective Vital Signs Last 24 Hour Vital Signs Date Time Temp Pulse Resp B/P (MAP) Pulse Ox O2 Delivery O2 Flow Rate FiO2 10/28/18 12:00 98.3 65 18 139/75 (96) 96 10/28/18 10:00 155/77 (103) 10/28/18 09:18 162/79 10/28/18 09:18 162/79 10/28/18 09:00 Room Air 10/28/18 08:00 98.0 70 16 162/79 (106) 98 10/28/18 04:00 98.9 77 17 95 10/28/18 00:00 98.9 72 17 154/94 (114) 95 10/27/18 21:00 Room Air 10/27/18 20:16 160/92 10/27/18 20:15 75 16 Room Air 21 10/27/18 20:00 98.5 66 16 160/92 (114) 98 10/27/18 16:00 97.7 73 19 112/95 (101) 98 Height (Feet): 5 Height (Inches): 4.00 Weight (Pounds): 160 Objective GENERAL: The patient is well-developed and well-nourished white female, in no apparent distress. HEENT: Eyes, pupils equal and responsive to light and accommodation. Extraocular movements are intact. NECK: Supple without lymphadenopathy. CHEST: Lungs are clear to auscultation bilaterally without wheezes or rales. CARDIOVASCULAR: Regular rate. S1 and S2 are normal without murmurs, rubs, or gallops. ABDOMEN: Soft, nontender, and nondistended. Positive bowel sounds. No evidence of hepatosplenomegaly. Currently, no rebound or guarding noted. EXTREMITIES: Negative for clubbing, cyanosis, or edema. Microbiology Date/Time Source Procedure Growth Status 10/25/18 14:15 Nasal Nares MRSA Culture - Final NO METHICILLIN RESISTANT STAPH AUREUS... Complete 10/25/18 14:09 Urine,Clean Catch Urine Culture - Final Proteus Mirabilis Complete 10/25/18 14:15 Rectum VRE Culture - Final NO VANCOMYCIN RESISTANT ENTEROCOCCUS ... Complete 10/25/18 14:15 Rectum - Final NO CARBAPENEM-RESISTANT ENTEROBACTERI... Complete Laboratory Tests Test 10/28/18 05:35 White Blood Count 6.3 K/UL (4.8-10.8) Red Blood Count 4.09 M/UL (4.20-5.40) L Hemoglobin 11.3 G/DL (12.0-16.0) L Hematocrit 35.1 % (37.0-47.0) L Mean Corpuscular Volume 86 FL (80-99) Mean Corpuscular Hemoglobin 27.6 PG (27.0-31.0) Mean Corpuscular Hemoglobin Concent 32.2 G/DL (32.0-36.0) Red Cell Distribution Width 12.5 % (11.6-14.8) Platelet Count 231 K/UL (150-450) Mean Platelet Volume 8.5 FL (6.5-10.1) Neutrophils (%) (Auto) 53.7 % (45.0-75.0) Lymphocytes (%) (Auto) 36.9 % (20.0-45.0) Monocytes (%) (Auto) 6.9 % (1.0-10.0) Eosinophils (%) (Auto) 2.1 % (0.0-3.0) Basophils (%) (Auto) 0.5 % (0.0-2.0) Prothrombin Time 10.7 SEC (9.30-11.50) Prothromb Time International Ratio 1.0 (0.9-1.1) Activated Partial Thromboplast Time 29 SEC (23-33) Sodium Level 141 MMOL/L (136-145) Potassium Level 3.9 MMOL/L (3.5-5.1) Chloride Level 107 MMOL/L (98-107) Carbon Dioxide Level 24 MMOL/L (21-32) Anion Gap 10 mmol/L (5-15) Blood Urea Nitrogen 19 mg/dL (7-18) H Creatinine 1.3 MG/DL (0.55-1.30) Estimat Glomerular Filtration Rate mL/min (>60) Glucose Level 93 MG/DL (74-106) Calcium Level 8.7 MG/DL (8.5-10.1) Phosphorus Level 3.1 MG/DL (2.5-4.9) Magnesium Level 1.8 MG/DL (1.8-2.4) Total Bilirubin 0.4 MG/DL (0.2-1.0) Aspartate Amino Transf (AST/SGOT) 14 U/L (15-37) L Alanine Aminotransferase (ALT/SGPT) 12 U/L (12-78) Alkaline Phosphatase 68 U/L (46-116) Total Protein 7.3 G/DL (6.4-8.2) Albumin 3.0 G/DL (3.4-5.0) L Globulin 4.3 g/dL Albumin/Globulin Ratio 0.7 (1.0-2.7) L Current Medications Medications (Trade) Dose Ordered Sig/Ivis Route PRN Reason Start Time Stop Time Status Last Admin Dose Admin Acetaminophen (Tylenol) 650 mg Q4H PRN ORAL T>100.5 10/25/18 21:15 11/24/18 21:14 Albuterol/ Ipratropium (Albuterol/ Ipratropium) 3 ml Q4H PRN HHN Shortness of Breath 10/25/18 21:15 10/30/18 21:14 Cephalexin (Keflex) 500 mg Q12HR ORAL 10/27/18 21:00 11/03/18 20:59 10/28/18 09:18 Clonidine HCl (Catapres Tab) 0.1 mg Q12HR ORAL 10/26/18 09:00 11/25/18 08:59 10/28/18 09:18 Dextrose (Dextrose 50%) 25 ml Q30M PRN IV Hypoglycemia 10/25/18 21:30 11/24/18 21:16 Dextrose (Dextrose 50%) 50 ml Q30M PRN IV hypoglycemia 10/25/18 21:30 11/24/18 21:29 Divalproex Sodium (Depakote) 250 mg EVERY 12 HOURS ORAL 10/27/18 12:45 11/26/18 12:44 10/28/18 09:18 Haloperidol Lactate (Haldol) 5 mg Q6H PRN IM Agitation 10/28/18 08:10 11/27/18 08:09 Heparin Sodium (Porcine) (Heparin 5000 units/ml) 5,000 units EVERY 12 HOURS SUBQ 10/25/18 21:00 11/24/18 20:59 10/28/18 09:19 Insulin Aspart (NovoLOG) BEFORE MEALS AND HS SUBQ 10/26/18 06:30 11/25/18 06:29 10/28/18 12:54 Levothyroxine Sodium (Synthroid) 25 mcg ACBREAKFAST ORAL 10/26/18 06:30 11/25/18 06:29 10/28/18 06:09 Lorazepam (Ativan) 2 mg Q6H PRN ORAL For Anxiety 10/28/18 12:45 11/04/18 12:44 10/28/18 13:05 Losartan Potassium (Cozaar) 25 mg DAILY ORAL 10/26/18 09:00 11/25/18 08:59 10/28/18 09:18 Morphine Sulfate (Morphine Sulfate) 2 mg Q4H PRN IVP Moderate Pain (Pain Scale 4-6) 10/25/18 21:15 11/01/18 21:14 Nitroglycerin (Ntg) 0.4 mg Q5MIN X 3 DOSES PRN SL Prn Chest Pain 10/25/18 21:30 11/24/18 21:29 Ondansetron HCl (Zofran) 4 mg Q6H PRN IVP Nausea & Vomiting 10/25/18 21:15 11/24/18 21:14 Polyethylene Glycol (Miralax) 17 gm DAILYPRN PRN ORAL Constipation 10/25/18 21:15 11/24/18 21:14 Quetiapine Fumarate (SEROquel) 25 mg BEDTIME ORAL 10/28/18 21:00 11/27/18 20:59 Sodium Chloride 1,000 ml @ 100 mls/hr Q10H IV 10/25/18 14:45 11/24/18 14:44 10/28/18 10:48 Temazepam (Restoril) 15 mg HSPRN PRN ORAL Insomnia 10/25/18 21:15 11/01/18 21:14 Chitra Hampton M.D. Oct 28, 2018 13:15
--- NOTE | 2018-10-28 13:20 | NUR ---
PT EVALUATION NOTE Patient seen for initial evaluation, see complete evaluation for details. Patient presents with generalized weakness and limited safety awareness which impairs patient's ability to perform mobility tasks. Patient will benefit from skilled inpatient PT intervention on a trial basis to address strength, balance, safety and functional mobility. Will re-assess on 10/31/18. Recommend return to SNF at discharge once medically cleared by MD. No DME needs at this time. Addendum: 10/28/18 at 1422 by AGUEDA BRANHAM PT Amended: Links added.
--- NOTE | 2018-10-28 13:29 | Consultation ---
History of Present Illness General Date patient seen: Oct 27, 2018 Chief Complaint: General Complaint Present Illness HPI 83 year old female with hx of Dementia, HTN, Gout,from nursing facility presented to ER with reports of being found on the ground with bruises. she was extremely agitated on presentation. Speaks [place] however is not able to provide appropriate history. She was found to have pyuria and LLL atelectasis. she is admitted for further work up. Allergies: Coded Allergies: ZOLPIDEM (Verified Allergy, Unknown, 10/25/18) Medication History Scheduled Amino Acids/Protein Hydrolys (Pro-Stat Liquid), 30 ML ORAL DAILY, (Reported) Aspirin* (Aspir 81*), 81 MG ORAL DAILY, (Reported) Clonidine Hcl* (Catapres*), 0.1 MG ORAL Q12HR, (Reported) Cyanocobalamin (Vitamin B-12)* (Vitamin B-12*), 1,000 MCG ORAL DAILY, (Reported) Insulin Aspart (Novolog Flexpen), Unknown Dose SUBQ BEFORE MEALS AND HS, ( Reported) Levothyroxine Sodium* (Synthroid*), 25 MCG ORAL ACBREAKFAST, (Reported) Linagliptin (Tradjenta), 5 MG PO DAILY, (Reported) Losartan Potassium* (Losartan Potassium*), 25 MG ORAL DAILY, (Reported) Loteprednol Etabonate (Lotemax), 0.25 INCH BOTH EYES BEDTIME, (Reported) Memantine Hcl* (Namenda*), 5 MG ORAL TWICE A DAY, (Reported) [place]-3 Fatty Acids/Fish Oil* (Fish Oil 1,000 Mg Softgel*), 2 CAP ORAL Q12HR, ( Reported) Sennosides* (Sennosides*), 17.2 MG ORAL BEDTIME, (Reported) Simvastatin (Zocor), 40 MG ORAL BEDTIME, (Reported) [Basaglar Pen 100u/mL], 10 UNITS SUBQ QHS, (Reported) Scheduled PRN Acetaminophen* (Acetaminophen 325MG Tablet*), 650 MG ORAL Q6H PRN for For Pain, (Reported) Acetaminophen* (Acetaminophen 325MG Tablet*), 650 MG ORAL Q6H PRN for Prn Headache/Temp > 101, (Reported) Clonazepam* (Klonopin*), 0.5 MG ORAL Q12HR PRN for Restlessness, (Reported) Magnesium Hydroxide* (Milk Of Magnesia*), 30 ML ORAL Q6HR PRN for Constipation, (Reported) Miscellaneous Medications Dextran 70/Hypromellose (Artificial Tears Eye Drops*), 1 DROP BOTH EYES, ( Reported) Patient History Healthcare decision maker Resuscitation status Advanced Directive on File Past Medical/Surgical History Past Medical/Surgical History: (1) Dementia with behavioral disturbance Review of Systems All Other Systems: negative except mentioned in HPI Physical Exam General Appearance: WD/WN Lines, tubes and drains: peripheral HEENT: normocephalic, anicteric Neck: non-tender, normal alignment Respiratory/Chest: lungs clear, normal breath sounds, decreased breath sounds Cardiovascular/Chest: normal peripheral pulses Abdomen: normal bowel sounds, soft Genitourinary/Rectal: normal genital exam Last 24 Hour Vital Signs Date Time Temp Pulse Resp B/P (MAP) Pulse Ox O2 Delivery O2 Flow Rate FiO2 10/28/18 12:00 98.3 65 18 139/75 (96) 96 10/28/18 10:00 155/77 (103) 10/28/18 09:18 162/79 10/28/18 09:18 162/79 10/28/18 09:00 Room Air 10/28/18 08:00 98.0 70 16 162/79 (106) 98 10/28/18 04:00 98.9 77 17 95 10/28/18 00:00 98.9 72 17 154/94 (114) 95 10/27/18 21:00 Room Air 10/27/18 20:16 160/92 10/27/18 20:15 75 16 Room Air 21 10/27/18 20:00 98.5 66 16 160/92 (114) 98 10/27/18 16:00 97.7 73 19 112/95 (101) 98 Intake and Output 10/27/18 10/28/18 18:59 06:59 Intake Total 360 ml 1440 ml Balance 360 ml 1440 ml Intake Oral 360 ml 240 ml IV Total 1200 ml # Voids 5 3 # Bowel Movements 1 2 Laboratory Tests Test 10/28/18 05:35 White Blood Count 6.3 K/UL (4.8-10.8) Red Blood Count 4.09 M/UL (4.20-5.40) L Hemoglobin 11.3 G/DL (12.0-16.0) L Hematocrit 35.1 % (37.0-47.0) L Mean Corpuscular Volume 86 FL (80-99) Mean Corpuscular Hemoglobin 27.6 PG (27.0-31.0) Mean Corpuscular Hemoglobin Concent 32.2 G/DL (32.0-36.0) Red Cell Distribution Width 12.5 % (11.6-14.8) Platelet Count 231 K/UL (150-450) Mean Platelet Volume 8.5 FL (6.5-10.1) Neutrophils (%) (Auto) 53.7 % (45.0-75.0) Lymphocytes (%) (Auto) 36.9 % (20.0-45.0) Monocytes (%) (Auto) 6.9 % (1.0-10.0) Eosinophils (%) (Auto) 2.1 % (0.0-3.0) Basophils (%) (Auto) 0.5 % (0.0-2.0) Prothrombin Time 10.7 SEC (9.30-11.50) Prothromb Time International Ratio 1.0 (0.9-1.1) Activated Partial Thromboplast Time 29 SEC (23-33) Sodium Level 141 MMOL/L (136-145) Potassium Level 3.9 MMOL/L (3.5-5.1) Chloride Level 107 MMOL/L (98-107) Carbon Dioxide Level 24 MMOL/L (21-32) Anion Gap 10 mmol/L (5-15) Blood Urea Nitrogen 19 mg/dL (7-18) H Creatinine 1.3 MG/DL (0.55-1.30) Estimat Glomerular Filtration Rate mL/min (>60) Glucose Level 93 MG/DL (74-106) Calcium Level 8.7 MG/DL (8.5-10.1) Phosphorus Level 3.1 MG/DL (2.5-4.9) Magnesium Level 1.8 MG/DL (1.8-2.4) Total Bilirubin 0.4 MG/DL (0.2-1.0) Aspartate Amino Transf (AST/SGOT) 14 U/L (15-37) L Alanine Aminotransferase (ALT/SGPT) 12 U/L (12-78) Alkaline Phosphatase 68 U/L (46-116) Total Protein 7.3 G/DL (6.4-8.2) Albumin 3.0 G/DL (3.4-5.0) L Globulin 4.3 g/dL Albumin/Globulin Ratio 0.7 (1.0-2.7) L Height (Feet): 5 Height (Inches): 4.00 Weight (Pounds): 160 Medications Current Medications Medications (Trade) Dose Ordered Sig/Viis Route PRN Reason Start Time Stop Time Status Last Admin Dose Admin Acetaminophen (Tylenol) 650 mg Q4H PRN ORAL T>100.5 10/25/18 21:15 11/24/18 21:14 Albuterol/ Ipratropium (Albuterol/ Ipratropium) 3 ml Q4H PRN HHN Shortness of Breath 10/25/18 21:15 10/30/18 21:14 Cephalexin (Keflex) 500 mg Q12HR ORAL 10/27/18 21:00 11/03/18 20:59 10/28/18 09:18 Clonidine HCl (Catapres Tab) 0.1 mg Q12HR ORAL 10/26/18 09:00 11/25/18 08:59 10/28/18 09:18 Dextrose (Dextrose 50%) 25 ml Q30M PRN IV Hypoglycemia 10/25/18 21:30 11/24/18 21:16 Dextrose (Dextrose 50%) 50 ml Q30M PRN IV hypoglycemia 10/25/18 21:30 11/24/18 21:29 Divalproex Sodium (Depakote) 250 mg EVERY 12 HOURS ORAL 10/27/18 12:45 11/26/18 12:44 10/28/18 09:18 Haloperidol Lactate (Haldol) 5 mg Q6H PRN IM Agitation 10/28/18 08:10 11/27/18 08:09 Heparin Sodium (Porcine) (Heparin 5000 units/ml) 5,000 units EVERY 12 HOURS SUBQ 10/25/18 21:00 11/24/18 20:59 10/28/18 09:19 Insulin Aspart (NovoLOG) BEFORE MEALS AND HS SUBQ 10/26/18 06:30 11/25/18 06:29 10/28/18 12:54 Levothyroxine Sodium (Synthroid) 25 mcg ACBREAKFAST ORAL 10/26/18 06:30 11/25/18 06:29 10/28/18 06:09 Lorazepam (Ativan) 2 mg Q6H PRN ORAL For Anxiety 10/28/18 12:45 11/04/18 12:44 10/28/18 13:05 Losartan Potassium (Cozaar) 25 mg DAILY ORAL 10/26/18 09:00 11/25/18 08:59 10/28/18 09:18 Morphine Sulfate (Morphine Sulfate) 2 mg Q4H PRN IVP Moderate Pain (Pain Scale 4-6) 10/25/18 21:15 11/01/18 21:14 Nitroglycerin (Ntg) 0.4 mg Q5MIN X 3 DOSES PRN SL Prn Chest Pain 10/25/18 21:30 11/24/18 21:29 Ondansetron HCl (Zofran) 4 mg Q6H PRN IVP Nausea & Vomiting 10/25/18 21:15 11/24/18 21:14 Polyethylene Glycol (Miralax) 17 gm DAILYPRN PRN ORAL Constipation 10/25/18 21:15 11/24/18 21:14 Quetiapine Fumarate (SEROquel) 25 mg BEDTIME ORAL 10/28/18 21:00 11/27/18 20:59 Sodium Chloride 1,000 ml @ 100 mls/hr Q10H IV 10/25/18 14:45 11/24/18 14:44 10/28/18 10:48 Temazepam (Restoril) 15 mg HSPRN PRN ORAL Insomnia 10/25/18 21:15 11/01/18 21:14 Assessment/Plan Problem List: (1) Acute encephalopathy ICD Codes: G93.40 - Encephalopathy, unspecified SNOMED: 55440903, 216335825 (2) Atelectasis, left ICD Codes: J98.11 - Atelectasis SNOMED: 03811822 (3) Dementia with behavioral disturbance ICD Codes: F03.91 - Unspecified dementia with behavioral disturbance SNOMED: 0529126102928 (4) Urinary tract infection ICD Codes: N39.0 - Urinary tract infection, site not specified SNOMED: 05623624 Treatment Plan: merchant cultures iv abx ID evaluation check electrolytes respiratory treatment Pam Valerio MD Oct 28, 2018 13:29
--- NOTE | 2018-10-28 13:30 | Pulmonology Progress Note ---
Assessment/Plan Problems: (1) Acute encephalopathy (2) Atelectasis, left (3) Dementia with behavioral disturbance (4) Urinary tract infection Assessment/Plan improving all noted eating better less agitated dc planning to half-way Subjective ROS Limited/Unobtainable: No Constitutional: Reports: no symptoms HEENT: Repors: no symptoms Respiratory: Reports: no symptoms Allergies: Coded Allergies: ZOLPIDEM (Verified Allergy, Unknown, 10/25/18) Objective Last 24 Hour Vital Signs Date Time Temp Pulse Resp B/P (MAP) Pulse Ox O2 Delivery O2 Flow Rate FiO2 10/28/18 12:00 98.3 65 18 139/75 (96) 96 10/28/18 10:00 155/77 (103) 10/28/18 09:18 162/79 10/28/18 09:18 162/79 10/28/18 09:00 Room Air 10/28/18 08:00 98.0 70 16 162/79 (106) 98 10/28/18 04:00 98.9 77 17 95 10/28/18 00:00 98.9 72 17 154/94 (114) 95 10/27/18 21:00 Room Air 10/27/18 20:16 160/92 10/27/18 20:15 75 16 Room Air 21 10/27/18 20:00 98.5 66 16 160/92 (114) 98 10/27/18 16:00 97.7 73 19 112/95 (101) 98 Intake and Output 10/27/18 10/28/18 18:59 06:59 Intake Total 360 ml 1440 ml Balance 360 ml 1440 ml Intake Oral 360 ml 240 ml IV Total 1200 ml # Voids 5 3 # Bowel Movements 1 2 General Appearance: WD/WN HEENT: normocephalic Respiratory/Chest: chest wall non-tender, lungs clear Abdomen: normal bowel sounds, soft, non tender Genitourinary: normal external genitalia Extremities: no clubbing 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 Complete 10/25/18 14:09 Urine,Clean Catch Urine Culture - Final Proteus Mirabilis Complete 10/25/18 14:15 Rectum VRE Culture - Final NO VANCOMYCIN RESISTANT ENTEROCOCCUS ... Complete 10/25/18 14:15 Rectum - Final NO CARBAPENEM-RESISTANT ENTEROBACTERI... Complete Laboratory Tests 10/28/18 05:35: White Blood Count 6.3, Red Blood Count 4.09L, Hemoglobin 11.3L, Hematocrit 35.1L , Mean Corpuscular Volume 86, Mean Corpuscular Hemoglobin 27.6, Mean Corpuscular Hemoglobin Concent 32.2, Red Cell Distribution Width 12.5, Platelet Count 231, Mean Platelet Volume 8.5, Neutrophils (%) (Auto) 53.7, Lymphocytes (% ) (Auto) 36.9, Monocytes (%) (Auto) 6.9, Eosinophils (%) (Auto) 2.1, Basophils ( %) (Auto) 0.5, Prothrombin Time 10.7, Prothromb Time International Ratio 1.0, Activated Partial Thromboplast Time 29, Sodium Level 141, Potassium Level 3.9, Chloride Level 107, Carbon Dioxide Level 24, Anion Gap 10, Blood Urea Nitrogen 19H, Creatinine 1.3, Estimat Glomerular Filtration Rate , Glucose Level 93, Calcium Level 8.7, Phosphorus Level 3.1, Magnesium Level 1.8, Total Bilirubin 0.4, Aspartate Amino Transf (AST/SGOT) 14L, Alanine Aminotransferase (ALT/SGPT) 12, Alkaline Phosphatase 68, Total Protein 7.3, Albumin 3.0L, Globulin 4.3, Albumin/Globulin Ratio 0.7L Current Medications Medications (Trade) Dose Ordered Sig/Ivis Route PRN Reason Start Time Stop Time Status Last Admin Dose Admin Acetaminophen (Tylenol) 650 mg Q4H PRN ORAL T>100.5 10/25/18 21:15 11/24/18 21:14 Albuterol/ Ipratropium (Albuterol/ Ipratropium) 3 ml Q4H PRN HHN Shortness of Breath 10/25/18 21:15 10/30/18 21:14 Cephalexin (Keflex) 500 mg Q12HR ORAL 10/27/18 21:00 11/03/18 20:59 10/28/18 09:18 Clonidine HCl (Catapres Tab) 0.1 mg Q12HR ORAL 10/26/18 09:00 11/25/18 08:59 10/28/18 09:18 Dextrose (Dextrose 50%) 25 ml Q30M PRN IV Hypoglycemia 10/25/18 21:30 11/24/18 21:16 Dextrose (Dextrose 50%) 50 ml Q30M PRN IV hypoglycemia 10/25/18 21:30 11/24/18 21:29 Divalproex Sodium (Depakote) 250 mg EVERY 12 HOURS ORAL 10/27/18 12:45 11/26/18 12:44 10/28/18 09:18 Haloperidol Lactate (Haldol) 5 mg Q6H PRN IM Agitation 10/28/18 08:10 11/27/18 08:09 Heparin Sodium (Porcine) (Heparin 5000 units/ml) 5,000 units EVERY 12 HOURS SUBQ 10/25/18 21:00 11/24/18 20:59 10/28/18 09:19 Insulin Aspart (NovoLOG) BEFORE MEALS AND HS SUBQ 10/26/18 06:30 11/25/18 06:29 10/28/18 12:54 Levothyroxine Sodium (Synthroid) 25 mcg ACBREAKFAST ORAL 10/26/18 06:30 11/25/18 06:29 10/28/18 06:09 Lorazepam (Ativan) 2 mg Q6H PRN ORAL For Anxiety 10/28/18 12:45 11/04/18 12:44 10/28/18 13:05 Losartan Potassium (Cozaar) 25 mg DAILY ORAL 10/26/18 09:00 11/25/18 08:59 10/28/18 09:18 Morphine Sulfate (Morphine Sulfate) 2 mg Q4H PRN IVP Moderate Pain (Pain Scale 4-6) 10/25/18 21:15 11/01/18 21:14 Nitroglycerin (Ntg) 0.4 mg Q5MIN X 3 DOSES PRN SL Prn Chest Pain 10/25/18 21:30 11/24/18 21:29 Ondansetron HCl (Zofran) 4 mg Q6H PRN IVP Nausea & Vomiting 10/25/18 21:15 11/24/18 21:14 Polyethylene Glycol (Miralax) 17 gm DAILYPRN PRN ORAL Constipation 10/25/18 21:15 11/24/18 21:14 Quetiapine Fumarate (SEROquel) 25 mg BEDTIME ORAL 10/28/18 21:00 11/27/18 20:59 Sodium Chloride 1,000 ml @ 100 mls/hr Q10H IV 10/25/18 14:45 11/24/18 14:44 10/28/18 10:48 Temazepam (Restoril) 15 mg HSPRN PRN ORAL Insomnia 10/25/18 21:15 11/01/18 21:14 Pam Valerio MD Oct 28, 2018 13:30
[2018-10-28] MEDS ORDERED: CEPHALEXIN750 MG ORAL (13:31)
--- NOTE | 2018-10-28 14:01 | Psych Consult Progress Note ---
Psychiatry Progress Note Psychiatry Progress Note Subjective the pt was agitated this am and was attempting to go home. the pt is confused and gets agitated easily Medications Current Medications Medications (Trade) Dose Ordered Sig/Ivis Route PRN Reason Start Time Stop Time Status Last Admin Dose Admin Acetaminophen (Tylenol) 650 mg Q4H PRN ORAL T>100.5 10/25/18 21:15 11/24/18 21:14 Albuterol/ Ipratropium (Albuterol/ Ipratropium) 3 ml Q4H PRN HHN Shortness of Breath 10/25/18 21:15 10/30/18 21:14 Cephalexin (Keflex) 500 mg Q12HR ORAL 10/27/18 21:00 11/03/18 20:59 10/28/18 09:18 Clonidine HCl (Catapres Tab) 0.1 mg Q12HR ORAL 10/26/18 09:00 11/25/18 08:59 10/28/18 09:18 Dextrose (Dextrose 50%) 25 ml Q30M PRN IV Hypoglycemia 10/25/18 21:30 11/24/18 21:16 Dextrose (Dextrose 50%) 50 ml Q30M PRN IV hypoglycemia 10/25/18 21:30 11/24/18 21:29 Divalproex Sodium (Depakote) 250 mg EVERY 12 HOURS ORAL 10/27/18 12:45 11/26/18 12:44 10/28/18 09:18 Escitalopram Oxalate (Lexapro) 10 mg DAILY ORAL 10/29/18 09:00 11/28/18 08:59 Escitalopram Oxalate (Lexapro) 10 mg ONCE ORAL 10/28/18 15:00 10/28/18 16:00 Haloperidol Lactate (Haldol) 5 mg Q6H PRN IM Agitation 10/28/18 08:10 11/27/18 08:09 Heparin Sodium (Porcine) (Heparin 5000 units/ml) 5,000 units EVERY 12 HOURS SUBQ 10/25/18 21:00 11/24/18 20:59 10/28/18 09:19 Insulin Aspart (NovoLOG) BEFORE MEALS AND HS SUBQ 10/26/18 06:30 11/25/18 06:29 10/28/18 12:54 Levothyroxine Sodium (Synthroid) 25 mcg ACBREAKFAST ORAL 10/26/18 06:30 11/25/18 06:29 10/28/18 06:09 Lorazepam (Ativan) 2 mg Q6H PRN ORAL For Anxiety 10/28/18 12:45 11/04/18 12:44 10/28/18 13:05 Losartan Potassium (Cozaar) 25 mg DAILY ORAL 10/26/18 09:00 11/25/18 08:59 10/28/18 09:18 Morphine Sulfate (Morphine Sulfate) 2 mg Q4H PRN IVP Moderate Pain (Pain Scale 4-6) 10/25/18 21:15 11/01/18 21:14 Nitroglycerin (Ntg) 0.4 mg Q5MIN X 3 DOSES PRN SL Prn Chest Pain 10/25/18 21:30 11/24/18 21:29 Ondansetron HCl (Zofran) 4 mg Q6H PRN IVP Nausea & Vomiting 10/25/18 21:15 11/24/18 21:14 Polyethylene Glycol (Miralax) 17 gm DAILYPRN PRN ORAL Constipation 10/25/18 21:15 11/24/18 21:14 Quetiapine Fumarate (SEROquel) 25 mg BEDTIME ORAL 10/28/18 21:00 11/27/18 20:59 Sodium Chloride 1,000 ml @ 100 mls/hr Q10H IV 10/25/18 14:45 11/24/18 14:44 10/28/18 10:48 Temazepam (Restoril) 15 mg HSPRN PRN ORAL Insomnia 10/25/18 21:15 11/01/18 21:14 Allergies: Coded Allergies: ZOLPIDEM (Verified Allergy, Unknown, 10/25/18) Objective Data Height (Feet): 5 Height (Inches): 4.00 Weight (Pounds): 160 General Appearance: alert, confused, agitated, combative, obese Appearance: disheveled Behavior Mannerisms: good eye contact Mental Status Exam - Mood: anxious, agitated Mental Status Exam - Thought P: logical Mental Status Exam - Thought C: delusions (specify) Mental Status Exam - Suicidal: not present Assessment/Plan Problem List: (1) Dementia with behavioral disturbance ICD Codes: F03.91 - Unspecified dementia with behavioral disturbance SNOMED: 8242684061532 Status: unchanged Plan: lexapro 10mg po qam haldol im ativan im seroquel 25mg po qhs Cynthia López MD Oct 28, 2018 14:01
--- NOTE | 2018-10-28 14:04 | NUR ---
NURSE NOTES: Pt presented to non-blanchable erythema without fluctuance R and L heels .Pt denied pain or tenderness when each palpated. Sacrum and buttocks pink and blanchable. No other skin concerns noted . Recommendations: Apply Triad Paste to buttocks .Cover Sacrum with Optifoam drsg. Change every 3 days and prn. Apply Cavilon Skin Barrier to both heels.Cover with Optifoam drsg. Change every 7 days and PRN. Reposition at least every 2hours or as tolerated. Off-load heels with pillow.
--- NOTE | 2018-10-28 14:17 | NUR ---
SWALLOW/SPEECH THERAPY NOTE: REFERRED FOR SWALLOW EVAL BY DR HOROWITZ (PRIMARY MD IS DR REAL). CHART REVIEWED, SEE FULL REPORT TO FOLLOW. DYSPHAGIA RISK FACTORS FOR THIS 83 Y.O.F.: ACUTE UTI, FALL, HEAD INJURY (CT HEAD SCAN NEG), CONTUSION, FOUND ON GROUND WITH BRUISES. RECENT CXR NEGATIVE AND LUNGS ARE CLEAR. ON ROOM AIR. RELEVANT MEDS: ALBUTEROL, ATIVAN, HALDOL, MORPHINE, ZOFRAN. H/O ADVANCED AGE, OROPHARYNGEAL DYSPHAGIA, DEMENTIA, DM, MDD/ANXIETY, HTN, UTI, CARDIAC D/O, ENDOCRINE HYPOTHYROIDISM. POLST STATES NO TUBE FEEDINGS. AT SNF BUT DIET NOT NOTED. CURRENTLY ON A [facility] SOFT CHOPPED DIET AND THIN LIQUIDS WITH POOR TO GOOD (25/50/75/100%) INTAKE. WHEN MEDS CRUSHED AND ADDED TO APPLESAUCE, PATIENT TOOK VERY LITTLE. PER RN, ABLE TO TAKE SMALL PILLS WITH LIQUIDS W/O OVERT ASPIRATION. PER STAFF PATIENT REFUSING HER LUNCH (SAID THIS IN THAI). PER PT AIDE, PATIENT IS VERY CONFUSED BUT CAN EXPRESS SOME BASIC NEEDS IN THAI. PER PSYCHIATRIST, DR FONTANEZ, HER PSYCH MEDS WILL BE CHANGED, SEE HER NOTE. PER HER SON, SHE IS BEST WITH [facility] SOFT GROUND FOODS AND WILL EAT BETTER WHEN SOMEONE PATS HER OVER THE HEAD OR ON THE SHOULDER. HE STATED THAT SHE HAS A H/O NOT EATING AT TIMES EVEN WHEN SHE IS IN A GOOD MOOD. INITIAL IMPRESSIONS: S/S OF AT LEAST A MILD OROPHARYNGEAL DYSPHAGIA AND MILD INCREASE IN ORAL PREP AND OROPHARYNGEAL TRANSIT TIMES. S/S OF ASPIRATION WITH THIN LIQUIDS VIA CUP (INCONSISTENT COUGH AFTER THE SWALLOW). GROSSLY FUNCTIONAL WITH NECTAR THICK LIQUIDS VIA CUP SEQUENTIAL SIPS AND PUREED TSP W/O OVERT ASPIRATION. GROSSLY FUNCTIONAL BUT SLOWER WITH SOFT FOOD THAT WAS CHOPPED BUT HAS NO ORAL RESIDUE NOR OVERT ASPIRATION. MISSING MANY UPPER AND SOME LOWER TEETH (NO DENTURES). RECOMMENDATIONS: MOD BARIUM SWALLOW STUDY INPATIENT OR OUTPT IF D/C TO FURTHER ASSESS SWALLOW, DETERMINE SILENT ASPIRATION RISK/ETIOLOGY, AND ATTEMPT TRIAL TX TECHNIQUES. CONTINUE WITH PO INTAKE BUT [facility] SOFT GROUND AND NECTAR THICK LIQUIDS WITH POSTED ASPIRATION PRECAUTIONS AND 1 TO 1 ASSIST WITH FEEDING. SEND HIGH LARRY SUP AND COMPLETED CALORIE COUNT PER RD LIKES STRAWBERRY FLAVOR DYSPHAGIA MANAGEMENT AND TX (SEE REPORT) [facility] [place] FOR COM TIPS ONLY EDUCATED/TRAINED STAFF IN POSTED ASP PRECAUTIONS. D/W RN, PATIENT'S SON, AND LEFT MESSAGE WITH
[2018-10-28 16:00] VITALS: BP 144/76
--- NOTE | 2018-10-28 17:07 | NUR ---
[employer]PERVISOR [employer] NOTES [facility] UNABLE TO ACCEPT PT AT THIS TIME DUE TO STAFFING. PT OK TO RETURN IN AM. WILL FOLLOW UP IN AM.
--- NOTE | 2018-10-28 18:34 | Internal Med Progress Note ---
Subjective Date of Service: Oct 28, 2018 Physician Name Abelardo Miranda Attending Physician Joel Araiza MD Current Medications Medications (Trade) Dose Ordered Sig/Ivis Route PRN Reason Start Time Stop Time Status Last Admin Dose Admin Acetaminophen (Tylenol) 650 mg Q4H PRN ORAL T>100.5 10/25/18 21:15 11/24/18 21:14 Albuterol/ Ipratropium (Albuterol/ Ipratropium) 3 ml Q4H PRN HHN Shortness of Breath 10/25/18 21:15 10/30/18 21:14 Cephalexin (Keflex) 500 mg Q12HR ORAL 10/27/18 21:00 11/03/18 20:59 10/28/18 09:18 Clonidine HCl (Catapres Tab) 0.1 mg Q12HR ORAL 10/26/18 09:00 11/25/18 08:59 10/28/18 09:18 Dextrose (Dextrose 50%) 25 ml Q30M PRN IV Hypoglycemia 10/25/18 21:30 11/24/18 21:16 Dextrose (Dextrose 50%) 50 ml Q30M PRN IV hypoglycemia 10/25/18 21:30 11/24/18 21:29 Divalproex Sodium (Depakote) 250 mg EVERY 12 HOURS ORAL 10/27/18 12:45 11/26/18 12:44 10/28/18 09:18 Escitalopram Oxalate (Lexapro) 10 mg DAILY ORAL 10/29/18 09:00 11/28/18 08:59 Haloperidol Lactate (Haldol) 5 mg Q6H PRN IM Agitation 10/28/18 08:10 11/27/18 08:09 Heparin Sodium (Porcine) (Heparin 5000 units/ml) 5,000 units EVERY 12 HOURS SUBQ 10/25/18 21:00 11/24/18 20:59 10/28/18 09:19 Insulin Aspart (NovoLOG) BEFORE MEALS AND HS SUBQ 10/26/18 06:30 11/25/18 06:29 10/28/18 17:45 Levothyroxine Sodium (Synthroid) 25 mcg ACBREAKFAST ORAL 10/26/18 06:30 11/25/18 06:29 10/28/18 06:09 Lorazepam (Ativan) 2 mg Q6H PRN ORAL For Anxiety 10/28/18 12:45 11/04/18 12:44 10/28/18 13:05 Losartan Potassium (Cozaar) 25 mg DAILY ORAL 10/26/18 09:00 11/25/18 08:59 10/28/18 09:18 Morphine Sulfate (Morphine Sulfate) 2 mg Q4H PRN IVP Moderate Pain (Pain Scale 4-6) 10/25/18 21:15 11/01/18 21:14 Nitroglycerin (Ntg) 0.4 mg Q5MIN X 3 DOSES PRN SL Prn Chest Pain 10/25/18 21:30 11/24/18 21:29 Ondansetron HCl (Zofran) 4 mg Q6H PRN IVP Nausea & Vomiting 10/25/18 21:15 11/24/18 21:14 Polyethylene Glycol (Miralax) 17 gm DAILYPRN PRN ORAL Constipation 10/25/18 21:15 11/24/18 21:14 Quetiapine Fumarate (SEROquel) 25 mg BEDTIME ORAL 10/28/18 21:00 11/27/18 20:59 Sodium Chloride 1,000 ml @ 100 mls/hr Q10H IV 10/25/18 14:45 11/24/18 14:44 10/28/18 10:48 Temazepam (Restoril) 15 mg HSPRN PRN ORAL Insomnia 10/25/18 21:15 11/01/18 21:14 Allergies: Coded Allergies: ZOLPIDEM (Verified Allergy, Unknown, 10/25/18) ROS Limited/Unobtainable: Yes Subjective 83 YO F admitted with near syncope. Now UTI. Cover for Int Med-Dr Araiza. Objective Last Vital Signs Date Time Temp Pulse Resp B/P (MAP) Pulse Ox O2 Delivery O2 Flow Rate FiO2 10/28/18 16:00 97.3 70 18 144/76 (98) 100 10/28/18 09:00 Room Air 10/27/18 20:15 21 Laboratory Tests Test 10/28/18 05:35 White Blood Count 6.3 K/UL (4.8-10.8) Red Blood Count 4.09 M/UL (4.20-5.40) L Hemoglobin 11.3 G/DL (12.0-16.0) L Hematocrit 35.1 % (37.0-47.0) L Mean Corpuscular Volume 86 FL (80-99) Mean Corpuscular Hemoglobin 27.6 PG (27.0-31.0) Mean Corpuscular Hemoglobin Concent 32.2 G/DL (32.0-36.0) Red Cell Distribution Width 12.5 % (11.6-14.8) Platelet Count 231 K/UL (150-450) Mean Platelet Volume 8.5 FL (6.5-10.1) Neutrophils (%) (Auto) 53.7 % (45.0-75.0) Lymphocytes (%) (Auto) 36.9 % (20.0-45.0) Monocytes (%) (Auto) 6.9 % (1.0-10.0) Eosinophils (%) (Auto) 2.1 % (0.0-3.0) Basophils (%) (Auto) 0.5 % (0.0-2.0) Prothrombin Time 10.7 SEC (9.30-11.50) Prothromb Time International Ratio 1.0 (0.9-1.1) Activated Partial Thromboplast Time 29 SEC (23-33) Sodium Level 141 MMOL/L (136-145) Potassium Level 3.9 MMOL/L (3.5-5.1) Chloride Level 107 MMOL/L (98-107) Carbon Dioxide Level 24 MMOL/L (21-32) Anion Gap 10 mmol/L (5-15) Blood Urea Nitrogen 19 mg/dL (7-18) H Creatinine 1.3 MG/DL (0.55-1.30) Estimat Glomerular Filtration Rate mL/min (>60) Glucose Level 93 MG/DL (74-106) Calcium Level 8.7 MG/DL (8.5-10.1) Phosphorus Level 3.1 MG/DL (2.5-4.9) Magnesium Level 1.8 MG/DL (1.8-2.4) Total Bilirubin 0.4 MG/DL (0.2-1.0) Aspartate Amino Transf (AST/SGOT) 14 U/L (15-37) L Alanine Aminotransferase (ALT/SGPT) 12 U/L (12-78) Alkaline Phosphatase 68 U/L (46-116) Total Protein 7.3 G/DL (6.4-8.2) Albumin 3.0 G/DL (3.4-5.0) L Globulin 4.3 g/dL Albumin/Globulin Ratio 0.7 (1.0-2.7) L Intake and Output 10/27/18 10/28/18 19:00 07:00 Intake Total 460 ml 1440 ml Balance 460 ml 1440 ml Intake Oral 360 ml 240 ml IV Total 100 ml 1200 ml # Voids 5 3 # Bowel Movements 1 2 Objective PHYSICAL EXAMINATION: VITAL SIGNS: Temperature 97.9 degrees, respirations 19, pulse 71, and blood pressure 125/94. GENERAL: The patient is well-developed and well-nourished white female, in no apparent distress. HEENT: Eyes, pupils equal and responsive to light and accommodation. Extraocular movements are intact. NECK: Supple without lymphadenopathy. CHEST: Lungs are clear to auscultation bilaterally without wheezes or rales. CARDIOVASCULAR: Regular rate. S1 and S2 are normal without murmurs, rubs, or gallops. ABDOMEN: Soft, nontender, and nondistended. Positive bowel sounds. No evidence of hepatosplenomegaly. Currently, no rebound or guarding noted. RECTAL: Refused. GENITAL: Refused. EXTREMITIES: Negative for clubbing, cyanosis, or edema. NEUROLOGIC: Cranial nerves II through XII are grossly intact without focal deficits. Motor strength is 5/5 bilaterally throughout. Deep tendon reflexes are 2+ plantar. Assessment/Plan Assessment/Plan ASSESSMENT: This is an 83-year-old white female with: 1. Near syncope. 2. Urinary tract infection. 3. Diabetes type 2. 4. Hypertension. 5. Hypothyroidism. 6. Alzheimer's dementia. 7. Gout. 8. Hypercholesterolemia. 9. Major depression. TREATMENT: 1. Near syncope. This may be secondary to urinary tract infection versus cerebrovascular accident versus acute myocardial infarction. The patient is admitted to the medical/surgical unit. 2. Urinary tract infection=proteus. D/C vanco and cefepime per ID; Start oral keflex 3. Diabetes type 2. The patient has been placed on NovoLog sliding scale. 4. Hypertension. Continue losartan as above. 5. Hypothyroidism. Continue Levoxyl as above. 6. Alzheimer's dementia. Continue Namenda as above. 7. Gout. 8. Hypercholesterolemia. 9. Major depression. Abelardo Miranda MD Oct 28, 2018 18:34
--- NOTE | 2018-10-28 19:34 | NUR ---
HAND-OFF: Report given to YE AGARWAL.
--- NOTE | 2018-10-28 19:44 | NUR ---
NURSE NOTES: Received patient in bed, [place] speaking, asleep, no acute distress noted, VSS, afebrile. Call light is within reach, bed is in low position, locked, alarm is on, will ensure safety and comfort, and will continue to monitor.
[2018-10-28 20:00] VITALS: BP 135/91
--- NOTE | 2018-10-28 22:37 | NUR ---
NURSE NOTES: MD was made aware that patient has no IV access.
[2018-10-29] VITALS: BP 117/65
[2018-10-29 04:00] VITALS: BP 130/81
[2018-10-29] MEDS: NovoLOG Insulin Flexpen SUBQ SCH ×2 (06:14→11:30)
[2018-10-29] MEDS: Levothyroxine 25mcg tab ORAL SCH (06:17)
--- NOTE | 2018-10-29 06:46 | NUR ---
HAND-OFF: Report given to Ulysses BELCHER.
[2018-10-29 07:08] LABS: BASOPHILS % (AUTO) 0.7 % (0.0-2.0); EOSINOPHILS % (AUTO) 2.3 % (0.0-3.0); HEMATOCRIT 33.6 % (37.0-47.0); HEMOGLOBIN 10.7 G/DL (12.0-16.0); LYMPHOCYTES % (AUTO) 42.4 % (20.0-45.0); MEAN CORPUSCULAR VOLUME 85 FL (80-99); MONOCYTES % (AUTO) 7.3 % (1.0-10.0); NEUTROPHILS % (AUTO) 47.3 % (45.0-75.0); PLATELET COUNT 225 K/UL (150-450); RED BLOOD COUNT 3.94 M/UL (4.20-5.40); RED CELL DISTRIBUTION WIDTH 12.7 % (11.6-14.8)
--- NOTE | 2018-10-29 07:26 | NUR ---
NURSE NOTES: Received pt from YE AGARWAL. Pt is confused and orient x2. Pt is in RA, No SOB or acute respiratory distress noted. pt has no iv access, Dr gerard is aware. all needs attended, bed is locked and is in the lowest position, call light within easy reach. will continue to monitor.
[2018-10-29 07:36] LABS: ANION GAP 10 mmol/L (5-15); BLOOD UREA NITROGEN 18 mg/dL (7-18); CALCIUM 8.7 MG/DL (8.5-10.1); CARBON DIOXIDE 23 MMOL/L (21-32); CHLORIDE 108 MMOL/L (98-107); POTASSIUM 3.8 MMOL/L (3.5-5.1); SODIUM 141 MMOL/L (136-145)
[2018-10-29 08:00] VITALS: BP 150/76
[2018-10-29] MEDS: Cephalexin 500mg cap ORAL SCH (08:37)
[2018-10-29] MEDS: Losartan 25mg tab ORAL SCH (08:37)
[2018-10-29] MEDS: Heparin 5000 units/ml inj SUBQ SCH (08:40)
[2018-10-29 09:09] LABS: CREATININE 1.2 MG/DL (0.55-1.30)
--- NOTE | 2018-10-29 09:10 | Consultation ---
Consult Note Consult Note CHIEF COMPLAINT: The patient is an 83-year-old Kosovan-speaking female, resident of [facility]. According to staff at [facility], the patient was found on the floor. It was unknown how long the patient was on the floor. The patient herself is unable to contribute much to the history and physical. She is Kosovan-speaking only. The patient was also quite agitated in the emergency room. The patient was admitted to [facility] for altered mental status and UTI. REVIEW OF SYSTEMS: Unable to assess secondary to the patient's mental status. PAST MEDICAL HISTORY: Significant for: 1. Diabetes type 2. 2. Hypothyroidism. 3. Alzheimer's dementia. 4. Gout. 5. Hypercholesterolemia. 6. Major depression. PAST SURGICAL HISTORY: Unknown. CURRENT MEDICATIONS: 1. Tylenol 650 mg p.o. q.4 h. p.r.n. 2. Aspirin 81 mg p.o. daily. 3. 10 units subcutaneously nightly. 4. Klonopin 0.5 mg p.o. twice daily. 5. Clonidine 0.1 mg p.o. twice daily. 6. Vitamin B12 1000 mcg p.o. daily. 7. Levoxyl 0.025 mg p.o. daily. 8. Losartan 25 mg p.o. daily. 9. Lotemax 0.5% applied one 0.25 inch to both eyes nightly. 10. Methenamine 5 mg one tablet p.o. twice daily. ALLERGIES: No known drug allergies. SOCIAL HISTORY: The patient is a . The patient is resident of [facility]. The patient denies tobacco or alcohol use. PHYSICAL EXAMINATION: VITAL SIGNS: Temperature 97.9 degrees, respirations 19, pulse 71, and blood pressure 125/94. GENERAL: The patient is well-developed and well-nourished white female, in no apparent distress. HEENT: Eyes, pupils equal and responsive to light and accommodation. Extraocular movements are intact. NECK: Supple without lymphadenopathy. CHEST: Lungs are clear to auscultation bilaterally without wheezes or rales. CARDIOVASCULAR: Regular rate. S1 and S2 are normal without murmurs, rubs, or gallops. ABDOMEN: Soft, nontender, and nondistended. Positive bowel sounds. No evidence of hepatosplenomegaly. Currently, no rebound or guarding noted. RECTAL: Refused. GENITAL: Refused. EXTREMITIES: Negative for clubbing, cyanosis, or edema. NEUROLOGIC: Cranial nerves II through XII are grossly intact without focal deficits. Motor strength is 5/5 bilaterally throughout. Deep tendon reflexes are 2+ plantar. LABORATORY STUDIES: WBC 9.4, hemoglobin 12.2, hematocrit 37.9, and platelets 267,000. Sodium 140, potassium 4.5, chloride 104, CO2 20, BUN 30, creatinine 1.4, glucose 134, and troponin 0.005. Urinalysis showed 2+ protein, 5+ blood, 3+ leukocyte esterase with 60 to 80 WBC and 15 to 20 RBC. Assessment/Plan ASSESSMENT: This is an 83-year-old female with: 1. Near syncope. 2. Urinary tract infection. 3. Diabetes type 2. 4. Hypertension. 5. Hypothyroidism. 6. Alzheimer's dementia. 7. Gout. 8. Hypercholesterolemia. 9. Major depression. TREATMENT: 1. Near syncope. This may be secondary to urinary tract infection 2. Urinary tract infection. Urine culture shows merchant-sensitive Proteus. 3. Diabetes type 2. The patient has been placed on NovoLog sliding scale. 4. Hypertension. Continue losartan as above. 5. Hypothyroidism. Continue Levoxyl as above. 6. Alzheimer's dementia. Continue Namenda as above. 7. Gout. 8. Hypercholesterolemia. 9. Major depression. Asked by primary insurance to assume care Discussed with Dr Araiza Will dc back to [facility] Bassam Fraire M.D., MD Oct 29, 2018 09:10
--- NOTE | 2018-10-29 10:19 | NUR ---
*-* INSURANCE *-* UPDATED CLINICALS & REVIEWS HAVE BEEN FAXED TO: [facility] P: [phone] F: [phone]
--- NOTE | 2018-10-29 10:57 | NUR ---
RD ASSESSMENT & RECOMMENDATIONS SEE CARE ACTIVITY FOR COMPLETE ASSESSMENT DAILY ESTIMATED NEEDS: Needs based on Wound, DM/ 58kg abw 25-30 kcals/kg 5936-0544 total kcals 1.2-1.5 g protein/kg 70-87 g total protein 25-30 mL/kg 6484-4617 total fluid mLs NUTRITION DIAGNOSIS: * Swallowing and chewing difficulty R/T dysphagia, poor dentition as evidenced [facility] soft ground texture, NTL per PHOTOGRAPHIC AIDE rec. * Increased prot needs R/T wound healing as evidenced by pt admitted w/ non-blanchable erythema at BL heels. CURRENT DIET:CCHO MED, mech soft ground NTL + Glucerna TID w/ meals PO DIET RECOMMENDATIONS: CCHO MED, texture per PHOTOGRAPHIC AIDE ADDITIONAL RECOMMENDATIONS: * Calibrated bedscale wt for accurate CBW * Wound healing: rec MVI x 1, Omar 1pkt BID * Monitor PO intake closely- variable at this time * Continue Glucerna TID w/ variable PO intake
[2018-10-29 12:00] VITALS: BP 138/62
--- NOTE | 2018-10-29 12:26 | NUR ---
NURSE NOTES: PT HAS d/c ORDER. ALL DISCHARGE ASSESSMENTS AND INSTRUCTIONS DONE. PT IS STABLE. v/s STABLE. PT'S SON JULIO CESAR IS AWARE ABOUT D/C. CALLED SNF GIVEN REPORT TO YE CHUNG. TOOK PICTURES FROM HEELS AND MEGHAN ANAL REDNESS. ALL BELONGINGS ARE WITH PT. PT LEFT HOSPITAL WITH ACCOMPANY OF HOSPITAL PERSONNEL.
--- NOTE | 2018-10-29 12:58 | NUR ---
*-* DISCHARGE PLANNED *-* PATIENT IS DISCHARGED BACK TO: [facility] ROOM[facility] 25-C SKILLED T: [phone] FOR NURSE TO NURSE REPORT [facility] HAS BEEN ARRANGED FOR [address] [employer] AND [employer]OM[employer] WINDOW REPA[employer]ER.
--- NOTE | 2018-10-29 21:35 | Psych Consult Progress Note ---
Psychiatry Progress Note Psychiatry Progress Note Allergies: Coded Allergies: ZOLPIDEM (Verified Allergy, Unknown, 10/25/18) Objective Data Height (Feet): 5 Height (Inches): 4.00 Weight (Pounds): 160 General Appearance: alert, confused, agitated, obese Mental Status Exam - Affect: blunted Mental Status Exam - Mood: agitated Mental Status Exam - Thought P: tangential, confusion Assessment/Plan Problem List: (1) Dementia with behavioral disturbance ICD Codes: F03.91 - Unspecified dementia with behavioral disturbance SNOMED: [id number] Status: unchanged Assessment/Plan: lexapro 10mg po qam haldol im ativan im seroquel 25mg po qhs Cynthia López MD Oct 29, 2018 21:35
--- NOTE | 2018-10-30 11:02 | Discharge Summary ---
Discharge Summary Discharge Summary _ DATE OF ADMISSION: 10/25/2018 DATE OF DISCHARGE: 10/29/2018 DISCHARGED BY: Dr. Philly Fitch CONSULTANTS: Dr. Pam Hampton [facility] HOSPITAL COURSE: Patient is an 83-year-old Afghan-speaking female, who was initially admitted under the care of Dr. Araiza, who presented with chief complaint of altered mental status. Patient is a resident of [facility]. According to the staff [facility], patient was found on the floor. It was unknown how long the patient was on the floor. The patient herself was unable to contribute much to the history and physical. She is Afghan-speaking only. She has medical history significant for diabetes type 2, hypothyroidism, Alzheimer's dementia, gout, hypercholesterolemia and mild depression. On evaluation at the ED, vital signs were stable. Patient was extremely agitated. Blood work did not show any leukocytosis, hemoglobin and hematocrit were stable. Electrolytes were normal. Creatinine was elevated to 1.4, BUN 30. Troponin was negative. Urinalyses showed +5 protein, +3 leukocyte esterase , 15-20 RBC and 60-80 WBC. Chest x-ray showed left base atelectasis. CT of the head did not show any acute disease. Left shoulder x-ray did not show any dislocation no fracture. Pelvic x-ray with no dislocation, swelling or fracture. She was admitted for evaluation of near syncope and UTI. Psychiatric evaluation was none. Patient was disoriented and confused. She was easily agitated and was unable to provide history. She had waxing and waning of consciousness. She was placed on non-behavioral bilateral soft wrist restraints. She was given Depakote, Seroquel and Lexapro. Haldol as needed. She was started empirically on IV vancomycin and cefepime. ID was consulted. Urine culture showed growth Proteus mirabilis. Resistant to nitrofurantoin, otherwise sensitive. [place] counts were low. Antibiotic was switched to oral Keflex. The repeat chest x-ray did not show any acute process. She came in with bilateral heel pressure injury. She was given wound care. She was given PT. [facility], to continue Keflex for 3 more days. FINAL DIAGNOSES: Near syncope Acute toxic metabolic encephalopathy Proteus UTI Type 2 diabetes Hypertension Hypothyroidism Gout Hypercholesterolemia Major depression Left lung atelectasis Dementia with behavioral disturbance DISPOSITION: Patient was discharged to a SNF. DISCHARGE MEDICATIONS: Refer to Discharge Medication List. I have been assigned to complete a discharge summary on this account, I was not involved with the patient's management. Ayana Bishop NP Oct 30, 2018 11:02
--- NOTE | 2018-10-31 16:02 | Cardiology Report ---
APPROVED REPORT EKG Measurement Heart [id number] 170P [id number] Sinus rhythm with premature atrial complexes with aberrant conduction Low voltage QRS Right bundle branch block Left anterior fascicular block Bifascicular block Septal infarct, age undetermined Cannot rule out Inferior infarct (masked by fascicular block?), age undetermined Abnormal ECG
== END 2018-10-29 12:20 | DRG 689 ==
LOC: EDBD 12:08 → EMR 13:14 → 4E 16:00 → EDBEDREQ 16:50 → 4E 18:05
DX: N39.0 Urinary tract infection, site not specified (principal); G92 Toxic encephalopathy; G93.40 Encephalopathy, unspecified; J98.11 Atelectasis; F02.81 Dementia in other diseases classified elsewhere, unspecified severity, with behavioral disturbance; E11.9 Type 2 diabetes mellitus without complications; E03.9 Hypothyroidism, unspecified; G30.9 Alzheimer's disease, unspecified; M10.9 Gout, unspecified; E78.00 Pure hypercholesterolemia, unspecified; F32.9 Major depressive disorder, single episode, unspecified; Z79.82 Long term (current) use of aspirin; L89.629 Pressure ulcer of left heel, unspecified stage; L89.619 Pressure ulcer of right heel, unspecified stage; B96.4 Proteus (mirabilis) (morganii) as the cause of diseases classified elsewhere; Z79.4 Long term (current) use of insulin; Z88.8 Allergy status to other drugs, medicaments and biological substances; R55 Syncope and collapse
CPT/HCPCS: 36415; 70450; 71045; 72170; 80048; 80053; 81003; 82550; 82553; 82962; 83690; 83735; 84100; 84484; 85025; 85610; 85730; 87081; 87086; 87181; 93005; 94664; 96374; 99285; J1815; J2405